=== PATIENT | female | born 1955 | race Caucasian/White ===

== ENCOUNTER → 2018-04-30 15:14 | Outpatient (CLI) | payer OTHER, SELFPAY ==
--- NOTE | 2018-04-30 | DI.US.S_ITS ---
PROCEDURE: US THYROID INDICATIONS: THYROID NODULE TECHNIQUE: Real-time scanning was performed of the thyroid gland, with image documentation. COMPARISON: None. FINDINGS: Right: The right thyroid lobe measures 3.6 x 0.9 x 0.9 cm. At the superior pole of the left thyroid, there is a 2 mm benign cyst incidentally noted. Left: The left thyroid lobe measures 3.7 x 1.1 x 1 cm. Isthmus: 3 mm in thickness. IMPRESSION: Thyroid ultrasound within normal limits. Dictated by: Mc Lange M.D. on 04/30/2018 at 16:34 Approved by: Mc Lange M.D. on 04/30/2018 at 16:35
== END ==
PROVIDERS: PCP Physician Assistant Medical; Visit Provider Physician Assistant Medical
DX: E04.1 Nontoxic single thyroid nodule (principal)
CPT/HCPCS: 76536

== ENCOUNTER → 2018-10-21 08:52 | Outpatient (CLI) | payer OTHER, SELFPAY ==
--- NOTE | 2018-10-21 | DI.RAD.S_ITS ---
PROCEDURE: FL WRIST INJECTION MR/CT RT INDICATIONS: RIGHT WRIST PAIN TECHNIQUE: After informed consent had been obtained, the wrist was examined fluoroscopically, and a site chosen for injection of the radiocarpal compartment from a dorsal approach. Skin was prepped and draped in a sterile fashion and 1% lidocaine infiltrated from the skin down to the articular surface. A hypodermic needle was then introduced into the articular space and a modest amount of contrast medium was instilled confirming intra-articular needle tip placement. This was followed by approximately 4 mL of a dilute gadolinium solution. Needle was removed and dressing was applied. The patient experienced no complications throughout the procedure and left the fluoroscopic suite in no apparent distress. FINDINGS: A single fluoroscopic spot image demonstrates intra-articular location to injected iodinated contrast. IMPRESSION: Successful fluoroscopic-guided administration of dilute Gadolinium solution for wrist MR arthrogram. Dictated by: Zeny Crouch M.D. on 10/21/2018 at 11:15 Approved by: Zeny Crouch M.D. on 10/21/2018 at 11:15
--- NOTE | 2018-10-21 | DI.MRI.S_ITS ---
PROCEDURE: MR WRIST RT W CON INDICATIONS: RIGHT WRIST PAIN TECHNIQUE: After the administration of 3-4 mL of dilute intra-articular Gadolinium contrast into the radiocarpal compartment, coronal T1 spin echo with fat saturation and T2 fast spin echo with fat saturation, axial T1 spin echo and T2 fast spin echo with fat saturation, sagittal T1 spin echo with and without fat saturation through the wrist. COMPARISON: None. FINDINGS: Image quality: Excellent. Bones and cartilage: The carpal bones are normally aligned. No bone marrow contusions or fractures. There are a few small nonspecific cystic foci within the carpal bones. There is mild indistinct T2 hyperintensity and heterogeneous T1 hypointensity within the lunate. There is mild cartilage thinning along the radiocarpal joint. There is also mild degeneration of the distal radioulnar joint. Carpal ligaments: The scapholunate and lunotriquetral ligaments appear intact, without gadolinium extravasation into the mid-carpal compartment. The radioscaphocapitate and radiolunotriquetral ligaments appear intact. The dorsal intercarpal and radiotriquetral ligaments appear intact. On sagittal images, the pisohamate ligament appears intact. Triangular fibrocartilage complex: The styloid and foveal attachments of the triangular fibrocartilage appear attenuated consistent with mild partial tearing. No gadolinium extravasation into the distal radioulnar joint. The adjacent meniscal homolog appears intermediate in signal intensity which may represent degeneration or sequelae of an ulnar collateral ligament sprain. The extensor carpi ulnaris tendon is normal in location with minimal linear intrasubstance partial tearing. Tendons and soft tissues: The carpal tunnel structures appear normal, including the median nerve. The ulnar nerve appears normal within Guyon's canal. All six extensor tendon compartments demonstrate normal morphology, without pathologic tendon sheath fluid. No soft tissue ganglion cysts. IMPRESSION: 1. Mild partial tearing at the ulnar attachments of the triangular fibrocartilage. 2. Mild edema along the ulnar collateral ligament of the wrist with intermediate signal in the meniscal homologue suggesting sequela of a mild sprain. There is associated minimal short segment interstitial partial tearing of the extensor carpi ulnaris tendon. 3. Mild indistinct T2 hyperintensity in the lunate with heterogeneous T1 hypointensity may reflect sequelae of a bone contusion. Developing avascular necrosis is less likely. Dictated by: Kashmir Caldwell M.D. on 10/21/2018 at 14:32 Approved by: Kashmir Caldwell M.D. on 10/21/2018 at 14:46
== END ==
PROVIDERS: PCP Nurse Practitioner; Visit Provider Orthopaedic Surgery
DX: M25.531 Pain in right wrist (principal); S63.591A Other specified sprain of right wrist, initial encounter; M25.431 Effusion, right wrist
CPT/HCPCS: 20605; 73222; 77002

== ENCOUNTER → 2019-06-21 09:38 | Outpatient (CLI) | payer OTHER, SELFPAY ==
--- NOTE | 2019-06-21 | DI.MRI.S_ITS ---
PROCEDURE: MR ELBOW RT WO CON INDICATIONS: lateral epicondylitis, right elbow TECHNIQUE: Noncontrast coronal proton density fast spin echo and T2 fast spin echo with fat saturation, axial and sagittal T1 spin echo and T2 fast spin echo with fat saturation through the elbow. COMPARISON: None. FINDINGS: Image quality: Excellent. Lateral structures: The lateral ulnar collateral ligament and radial collateral ligament both appear intact. Thickened overlying proximal common extensor tendon is seen with surrounding edema and intrasubstance heterogeneous signal suggestive of tendinosis or low-grade partial-thickness tear. Medial structures: The ulnar collateral ligament appears intact. The overlying common flexor tendon appears normal. The ulnar nerve appears normal in size and signal within the cubital tunnel. Anterior structures: The biceps and brachialis tendons both appear intact as they insert onto the proximal radius and ulna, respectively. No bicipitoradial bursal fluid. The median and radial neurovascular bundles appear normal; no focal muscle atrophy to suggest nerve impingement. Posterior structures: The conjoint triceps tendon from the long and lateral heads appears intact. The medial head of the triceps tendon also appears normal, with direct muscle insertion onto the olecranon. No olecranon bursal fluid. Bone and cartilage: No bone marrow contusions or fractures. No osteochondral injuries. IMPRESSION: 1. Tendinosis and low-grade partial-thickness tear involving common extensor tendon origin at its lateral humeral condyle insertion consistent with lateral epicondylitis. Underlying lateral collateral ligaments are intact. 2. No marrow edema. No fracture or dislocation. 3. Mild soft tissue swelling and edema over the proximal olecranon with no fluid distention of olecranon bursa. Dictated by: Mark Graham M.D. on 06/21/2019 at 14:56 Approved by: Mark Graham M.D. on 06/21/2019 at 15:08
== END ==
PROVIDERS: PCP Nurse Practitioner; Visit Provider Preventive Medicine Occupational Medicine
DX: M77.11 Lateral epicondylitis, right elbow (principal); M79.89 Other specified soft tissue disorders
CPT/HCPCS: 73221

== ENCOUNTER → 2019-09-20 16:03 | Outpatient (CLI) | payer OTHER, SELFPAY ==
--- NOTE | 2019-09-20 | DI.US.S_ITS ---
PROCEDURE: US RENAL COMPLETE INDICATIONS: HX OF UTI'S TECHNIQUE: Real-time scanning was performed of the kidneys and bladder, with image documentation. COMPARISON: None. FINDINGS: Kidneys: Kidneys are normal in size. Right kidney measures 12.0 cm long; left kidney measures 11.0 cm long. Right renal cortical thickness is 1.2 cm; left renal cortical thickness is 1.6 cm. Renal cortical echotexture is normal. No hydronephrosis or nephrolithiasis. No suspicious left-sided solid mass lesions. There is a heterogeneously hypoechoic focus within the midportion of the right kidney deep to the cortex measuring approximately 2.5 x 1.8 x 3.2 cm. No associated vascularity. Bladder: Pre-void bladder volume is 242 mL. Post-void residual is 40 mL. Pre-void images demonstrate no intraluminal masses or stones. On pre-void images, the bilateral ureteral jets are noted with color Doppler interrogation. (Of note, ureteral jets may not be detectable in up to 25% of cases due to insufficient differences in specific gravity between ureteral and bladder urine). Miscellaneous: No free pelvic fluid. IMPRESSION: 1. Bilateral kidneys without acute sonographic abnormalities or evidence for obstructive uropathy. 2. A 2.5 cm x 1.8 cm x 3.2 cm heterogeneously hypoechoic focus just deep to the cortex of the mid right kidney which may represent eccentric cortical tissue versus complex fluid collection versus mass. Recommend further evaluation with multiphase CT or MRI of the abdomen (renal mass protocol) to confirm and further characterize if persistent. Dictated by: Torrey Strong M.D. on 09/20/2019 at 18:00 Approved by: Torrey Strong M.D. on 09/20/2019 at 18:07
== END ==
PROVIDERS: PCP Nurse Practitioner; Referring Provider Urology; Visit Provider Urology
DX: Z09 Encounter for follow-up examination after completed treatment for conditions other than malignant neoplasm (principal); Z87.440 Personal history of urinary (tract) infections
CPT/HCPCS: 76770

== ENCOUNTER 2019-12-31 07:14 | Emergency (ER) | payer OTHER, SELFPAY ==
--- NOTE | 2019-12-31 07:28 | DI.RAD.S_ITS ---
PROCEDURE: XR HAND LT MIN 3V INDICATIONS: trip and fall TECHNIQUE: 3 views of the hand(s) acquired. COMPARISON: None. FINDINGS: Bones: On one image, there is an apparent mildly displaced radial styloid fracture seen. No other focal bony abnormality is seen. Age-appropriate bony degenerative changes are seen. Soft tissues: No suspicious soft tissue calcifications. IMPRESSION: Apparent radial styloid fracture seen on one view. Please correlate with focal tenderness. If it would be helpful for clinical management decision making, please consider a dedicated wrist CT for further evaluation. Dictated by: Mc Lange M.D. on 12/31/2019 at 7:16 Approved by: Mc Lange M.D. on 12/31/2019 at 7:18
[2019-12-31 07:29] VITALS: BP 149/79; PULSE 81; RESP 16; TEMP 37.2; O2SAT 99; BMI 33.7
--- NOTE | 2019-12-31 08:01 | ED_ITS ---
HPI - Extremity Injury (Upper) General Chief Complaint: Extremity Injury, Upper Stated Complaint: fell at home cant move left hand Time Seen by Provider: 12/31/19 07:47 Source: patient Mode of arrival: Family Vehicle Limitations: no limitations History of Present Illness HPI narrative: CC: Left hand injury. HPI: The patient is a 64-year-old female who states that she was arm outside going up concrete stairs when she slipped and fell and jammed a stair between her left middle and ring finger. She developed severe pain and discomfort and pain in the area of the metacarpophalangeal joints. The patient admits to being right-hand dominant. She stuck her hand out to break her fall. Her pain and discomfort is 7/10 in intensity. It is a dull achy discomfort. She denies any loss of sensation. She did not strike her head back or neck. She denies any chest pain shortness of breath hip pain pelvic pain or difficulty in walking. She did not lose consciousness. She denies a history of diabetes mellitus hypertension stroke myocardial infarction COPD asthma. She admits to being a former smoker periodically drinks alcohol does not use any drugs or marijuana. Related Data Home Medications Medication Instructions Recorded Confirmed aspirin 81 mg tablet,delayed 81 mg PO DAILY 01/15/18 01/15/18 release bupropion HCl 200 mg tablet,12 hr 200 mg PO DAILY 01/15/18 01/15/18 sustained-release ibuprofen 600 mg tablet 600 mg PO QID PRN 01/15/18 01/15/18 levothyroxine 50 mcg capsule 50 mcg PO DAILY 01/15/18 01/15/18 Previous Rx's Medication Instructions Recorded naproxen [Naprosyn] 500 mg PO BID PRN #20 tab 12/31/19 Allergies Allergy/AdvReac Type Severity Reaction Status Date / Time narcotics AdvReac Vomiting Uncoded 12/31/19 07:33 opiates AdvReac Vomiting Uncoded 12/31/19 07:33 Review of Systems Review of Systems Narrative: REVIEW OF SYSTEMS: CONSTITUTIONAL: Denies any fever chills or sweats. NEUROLOGICAL: Denies any headache or head injury numbness or tingling loss of sensation difficulty in walking. EENT: Denies any loss of vision change in vision sore throat. CARDIO-PULMONARY: She has had no chest pain cough shortness of breath difficulty in breathing. GASTROINTESTINAL: She denies any abdominal pain nausea vomiting diarrhea incontinence of stool or urine. GENITAL URINARY: No urinary symptoms. MUSCULOSKELETAL/ RHEUMATOLOGICAL: She denies any back pain. Patient History Social History Smoking Status: Former smoker Smoking Status: Former smoker alcohol intake frequency: 0-2 drinks per day Substance Use Type: does not use Exam Narrative Exam Narrative: PHYSICAL EXAM: CONSTITUTIONAL: Awake, Alert, Oriented, Coherent, Cooperative in NAD. Pleasant and cooperative HEAD: AT/NC EENT: PERRL, FROM of eyes, no discharge, no nystagmus MOUTH:Oral mucosa is moist and pink, posterior pharynx is without erythema or exudate. NECK: Supple, no obvious JVD, Trachea is midline without stridor, no palpable LN. SPINE: Palpationof the cervical, Thoracic, Lumbar or Sacral spine reveals no gross deformity or tenderness. No CVA tenderness. THORAX: No , chest wall tenderness. LUNGS: Clear, symmetrical breath sounds without respiratory distress. HEART: Normal heart tones, regular rhythm and rate without murmur. ABDOMEN: Soft, non-tender, normal bowel sounds without guarding, rebound, rigidity or palpable mass. EXTREMITIES: The patient has no tenderness over the distal radius or ulna of the left hand. The patient is tender to palpation over the metacarpal phalangeal joint of the ring and middle fingers and the webbing and soft tissue in between these fingers. The distal metacarpal bones of the ring finger and middle finger are tender but no palpable deformity. There is no significant soft tissue swelling or bruising of this area. SKIN: No rash, bruising, petechiae, purpura or abrasions NEURO: Awake, alert, oriented, conversive, cranial nerves II-XII are symmetrical , moves all 4 extremities and is ambulatory. Initial Vital Signs Initial Vital Signs: Vital Signs Temperature 98.9 F 12/31/19 07:29 Pulse Rate 81 12/31/19 07:29 Respiratory Rate 16 12/31/19 07:29 Blood Pressure 149/79 H 12/31/19 07:29 Pulse Oximetry 99 12/31/19 07:29 Course Course Course Narrative: 0759: Review of the patient's x-ray by myself revealed no fracture. At this time there is no radiology report. The patient states that her pain and discomfort with movement is 7/10 in intensity. She states that for severe pain and discomfort she has tramadol at home which does not cause her to have nausea and vomiting. She states that she can take this for severe pain and discomfort. The patient will be placed in a volar splint, a sling and follow up with [facility], Dr. Nichole. Orders Ordered: Discontinued Medications Ketorolac Tromethamine (Toradol) 30 mg IM NOW ONE Stop: 12/31/19 08:04 Last Admin: 12/31/19 08:19 Dose: Not Given Documented by: JUAN Vital Signs Vital signs: Vital Signs - 8 hr 12/31/19 07:29 Temperature 98.9 F Pulse Rate 81 Respiratory Rate 16 Blood Pressure 149/79 H Pulse Oximetry 99 Discharge Plan Departure Patient Disposition: Home Clinical Impression: Contusion of hand, left Qualifiers: Encounter type: initial encounter Qualified Code(s): S60.222A - Contusion of left hand, initial encounter Hand sprain Qualifiers: Encounter type: initial encounter Laterality: left Qualified Code(s): S63.92XA - Sprain of unspecified part of left wrist and hand, initial encounter Discharge Date/Time: 12/31/19 09:33 Instructions: Sprain, Finger Sprain, DI for Wrist Sprain, DI for Contusion Activity Restrictions/Additional Instructions: 1. Thank you for letting us participate in your care. If the radiologist sees something on the x-ray that I did not see we will call you with the results. But my review of the x-rays of your left hand revealed no fracture. Your injury is consistent with a sprain and contusion of the finger. You may have arm injured and disrupted some of the ligaments between your ring finger and middle finger. 2. Keep your hand elevated and apply ice for swelling every 2 hours for 20-30 minutes. Use a sling as necessary to support the arm. Continue to wear your splint until you are seen in follow-up with your primary care physician or orthopedic surgeon. 3. Use Naprosyn 500 mg every 12 hours as needed for pain and discomfort. 4. For severe pain and discomfort use the tramadol that she already have at home. 5. If you develop worsening pain difficulty in the use of the hand increased swelling increased numbness or tingling or loss of function return to the emergency department as necessary. 6. Call Dr. Nichole's office at [facility] to make a follow-up exam. Prescriptions: New naproxen [Naprosyn] 500 mg tablet 500 mg PO BID PRN (Reason: pain) Qty: 20 RF: 0 No Action bupropion HCl 200 mg tablet extended release 12 hr 200 mg PO DAILY RF: 0 levothyroxine 50 mcg capsule 50 mcg PO DAILY RF: 0 aspirin 81 mg tablet,delayed release (DR/EC) 81 mg PO DAILY RF: 0 ibuprofen 600 mg tablet 600 mg PO QID PRNRF: 0 Referrals: Leslie Weiner ARNP [Primary Care Provider] - Curtis Nichole MD [Physician] - (hand injury with apparent fracture secondary to a fall.)
[2019-12-31 09:32] VITALS: BP 132/73; PULSE 77; RESP 16; O2SAT 98
== END 2019-12-31 09:33 | disposition home or self-care (01) ==
PROVIDERS: Emergency Provider Emergency Medicine; PCP Nurse Practitioner
DX: S60.222A Contusion of left hand, initial encounter (principal); S63.92XA Sprain of unspecified part of left wrist and hand, initial encounter; W10.9XXA Fall (on) (from) unspecified stairs and steps, initial encounter
CPT/HCPCS: 29125; 73130; 99283

== ENCOUNTER → 2020-03-21 11:03 | Outpatient (CLI) | payer OTHER, SELFPAY | PROVIDERS: PCP Nurse Practitioner; Visit Provider Registered Nurse Diabetes Educator | DX: N39.0 Urinary tract infection, site not specified (principal) | CPT/HCPCS: 87086 ==

== ENCOUNTER → 2020-05-07 16:32 | Outpatient (CLI) | payer OTHER, SELFPAY | PROVIDERS: PCP Registered Nurse Diabetes Educator; Visit Provider Family Medicine | DX: R30.0 Dysuria (principal) | CPT/HCPCS: 87086 ==

== ENCOUNTER → 2020-06-07 17:22 | Outpatient (CLI) | payer OTHER, SELFPAY ==
--- NOTE | 2020-06-07 17:23 | DI.MRI.S_ITS ---
PROCEDURE: MR SHOULDER RT WO CON INDICATIONS: PAIN IN RIGHT SHOULDER TECHNIQUE: Noncontrast oblique coronal T2 fast spin echo with fat saturation, oblique sagittal T1 spin echo and T2 fast spin echo with fat saturation, axial T1 spin echo and T2 fast spin echo with fat saturation through the shoulder. COMPARISON: [facility], CR, XR SHOULDER 2+ VIEWS RIGHT, 05/17/2020, 14:57. FINDINGS: Image quality: Excellent. Rotator cuff: There is full-thickness tear of the supraspinatus tendon. No supraspinatus tendon retraction. High-grade partial thickness tear is seen in the infraspinatus tendon. There is subscapularis tendinitis. Sagittal images demonstrate no rotator cuff muscle atrophy. Bones and bursae: No bone marrow contusions or fractures. There is moderate acromioclavicular and glenohumeral joint degeneration. The acromion demonstrates conventional anatomy, without an os acromiale. There is small subacromial-subdeltoid bursal fluid consistent with mild bursitis. Capsule and soft tissues: There is degenerative fraying of the glenoid labrum. In the absence of intra-articular contrast, the glenohumeral ligaments appear intact. The long head of the biceps tendon demonstrates normal location and morphology. The rotator interval appears normal, without fibrosis. The coracohumeral ligament is normal in thickness. IMPRESSION: 1. Full-thickness tear of the supraspinatus tendon. 2. High-grade partial thickness tear of the infraspinatus tendon. 3. Subscapularis tendinitis. 4. Degenerative fraying of the glenoid labrum. 5. Moderate acromioclavicular and glenohumeral joint degeneration. Dictated by: Zeny Crouch M.D. on 06/07/2020 at 20:12 Approved by: Zeny Crouch M.D. on 06/08/2020 at 9:35
== END ==
PROVIDERS: PCP Registered Nurse Diabetes Educator; Referring Provider Orthopaedic Surgery; Visit Provider Orthopaedic Surgery
DX: M25.511 Pain in right shoulder (principal); M75.121 Complete rotator cuff tear or rupture of right shoulder, not specified as traumatic; M19.011 Primary osteoarthritis, right shoulder; M77.8 Other enthesopathies, not elsewhere classified
CPT/HCPCS: 73221

== ENCOUNTER → 2020-08-13 10:28 | Outpatient (CLI) | payer OTHER, SELFPAY ==
[2020-08-13 11:55] LABS: COVID19 -Nasal RAPID Negative (Negative)
== END ==
PROVIDERS: PCP Registered Nurse Diabetes Educator; Visit Provider Physician Assistant
DX: Z20.822 Contact with and (suspected) exposure to COVID-19 (principal)
CPT/HCPCS: 87635

== ENCOUNTER → 2020-10-19 07:24 | Outpatient (CLI) | payer OTHER, SELFPAY ==
[2020-10-19 08:20] LABS: Hematocrit 39.1 % (36-46); Hemoglobin 12.8 g/dL (12.0-16.0); Mean Corpuscular HGB Conc 32.7 % (30-36); Mean Corpuscular Hemoglobin 29.7 PG (26-34); Mean Corpuscular Volume 90.8 fL (80-100); Platelet Count 264 X10^3/uL (150-400); Red Cell Distribution Width 13.7 % (11.6-14.8); White Blood Cell Count 5.9 X10^3/uL (4.5-11.0)
[2020-10-19 08:45] LABS: Alanine Aminotransferase 15 IU/L (<35); Albumin 4.3 g/dL (3.5-5.0); Albumin Globulin Ratio 1.5 (1.0-2.8); Alkaline Phosphatase 55 U/L (38-126); Aspartate Aminotransferase 18 IU/L (14-36); BUN Creatinine Ratio 18.3 (6-22); Bilirubin Total 0.3 mg/dL (0.2-1.3); Blood Urea Nitrogen 17 mg/dL (7-17); Carbon Dioxide 30 mmol/L (22-32); Chloride 104 mmol/L (98-107); Cholesterol 264 mg/dL (140-199); Estimated Glomerular Filt Rate > 60.0 mL/min (>60); Globulin 2.8 g/dL (1.7-4.1); Glucose 102 mg/dL (80-110); HEMOLYSIS < 15 (0-50); Total Protein 7.1 g/dL (6.3-8.2); Triglycerides 261 mg/dL (35-150)
[2020-10-19 08:53] LABS: Calcium 9.7 mg/dL (8.4-10.2); HDL Cholesterol 50 mg/dL (40-60); LDL Cholesterol Calculated 162 mg/dL (<100); Potassium 4.2 mmol/L (3.4-5.1); Sodium 138 mmol/L (137-145)
[2020-10-19 09:02] LABS: Free T4, Direct Thyroxine 1.13 ng/dL (0.78-2.19)
[2020-10-19 09:15] LABS: Thyroid Stimulating Hormone 2.48 uIU/mL (0.47-4.68)
== END ==
PROVIDERS: PCP Nurse Practitioner Family; Referring Provider Nurse Practitioner Family; Visit Provider Nurse Practitioner Family
DX: Z00.00 Encounter for general adult medical examination without abnormal findings (principal); E03.9 Hypothyroidism, unspecified; Z13.6 Encounter for screening for cardiovascular disorders; Z86.19 Personal history of other infectious and parasitic diseases
CPT/HCPCS: 36415; 80053; 80061; 84439; 84443; 85027; 87522

== ENCOUNTER 2020-12-26 15:43 | Emergency (ER) | payer OTHER, SELFPAY ==
[2020-12-26 15:47] VITALS: BP 161/90; PULSE 86; RESP 18; TEMP 36.6; O2SAT 98; BMI 30.7
--- NOTE | 2020-12-26 17:20 | ED_ITS ---
HPI - General Adult General Chief complaint: Extremity Injury, Upper Stated complaint: wound to ring finger right hand Time Seen by Provider: 12/26/20 17:14 Source: patient Mode of arrival: Ambulatory Limitations: no limitations History of Present Illness HPI narrative: Patient is a 65-year-old female here for evaluation of a laceration to the tip of her right ring finger. She states that this morning she was cleaning a mandoline that she had used for chopping vegetables and cut the tip of her finger. She states that she put a bandage over the area and went to work but as the day went on it still was oozing and so she came in hoping that she could have it glued closed. Related Data Home Medications Medication Instructions Recorded Confirmed aspirin 81 mg tablet,delayed 81 mg PO DAILY 01/15/18 11/14/20 release bupropion HCl 200 mg tablet,12 hr 200 mg PO DAILY 01/15/18 11/14/20 sustained-release ibuprofen 600 mg tablet 600 mg PO QID PRN 01/15/18 11/14/20 diazepam 5 mg tablet 5 mg PO BEDTIME PRN 10/16/20 11/14/20 Previous Rx's Medication Instructions Recorded estradiol 10 mcg vaginal tablet 10 mcg VAG 2XW #26 tab 02/24/20 levothyroxine 50 mcg capsule 100 mcg PO DAILY #180 cap 10/16/20 Allergies Allergy/AdvReac Type Severity Reaction Status Date / Time Opioids - Morphine Analogues AdvReac Verified 12/26/20 15:47 Review of Systems Musculoskeletal Musculoskeletal: Reports system reviewed and no additional complaints, except as documented Integumentary/Breasts Comments: Cut to the tip of the right ring finger Hematologic/Lymphatic On Anticoagulants: No Allergic/Immunologic Allergic/Immunologic: Reports system reviewed and no additional complaints, except as documented Patient History Medical History Ankle pain Encounter for routine gynecological examination (11/14/20) Encounter for wellness examination in adult (11/14/20) Fibroids Foot pain (~2017) Fractures Frequent UTI History of hepatitis C (~1973) Hypothyroidism (~2013) Kidney stones (~1979) Mixed hyperlipidemia (11/2020) Pernicious anemia (~2014) Post-menopausal Right shoulder pain Seizures Shingles (1979) Vertigo (~2015) Surgical History Anesthesia Bunion (~1972) History of appendectomy (~1960) History of section History of elbow surgery (~01/16/20) History of left knee surgery (~11/2016) History of surgery on right wrist (~04/04/19) History of tonsillectomy (~1971) History of total right hip arthroplasty (~09/2015) Status post arthroscopic surgery of right knee (~2008) Trigger finger of right thumb (~2012) Family History Father COPD (chronic obstructive pulmonary disease) History of heart disease Cancer Mother Breast cancer Mental health problem Brother Skin cancer Sister Diabetes mellitus Obesity Grandfather Stroke Arthritis Grandmother No problems noted. Grandfather History of heart disease Arthritis Grandmother Mental health problem Social History Smoking Status: Former smoker Tobacco: How many years used: 25 second hand exposure: No alcohol intake: current (1-2x/week) substance use type: does not use Smoking Status: Former smoker alcohol intake frequency: a few times a week Substance Use Type: does not use Exam Initial Vital Signs Initial Vital Signs: Vital Signs Temperature 97.9 F 12/26/20 15:47 Pulse Rate 86 12/26/20 15:47 Respiratory Rate 18 12/26/20 15:47 Blood Pressure 161/90 H 12/26/20 15:47 Pulse Oximetry 98 12/26/20 15:47 Const General: cooperative and comfortable Limitations: mental status not altered Cardio Pulses: radial pulses present on the right Skin Other: 1 cm cut to the volar aspect of the right ring finger distal. Does not i nvolve the nail. Neuro General: patient alert and patient awake Sensory Exam: no sensory deficits noted Extrem General: capillary refill normal Procedures Laceration Repair Laceration 1: Site: other (Ring finger) Side (If applicable): right Size (cm): 1 Description: linear Depth: simple, single layer Pre-repair: irrigated extensively and deep structures intact Skin layer closed with: dermabond Course Vital Signs Vital signs: Vital Signs - 8 hr 12/26/20 15:47 12/26/20 17:55 Temperature 97.9 F Pulse Rate 86 80 Respiratory Rate 18 Blood Pressure 161/90 H 135/80 Pulse Oximetry 98 Medical Decision Making MDM Narrative Medical decision making narrative: Neurovascularly intact, no signs of foreign body. Had a discussion with the patient regarding the closure options and she opted for Steri-Strips and Dermabond. We did get good closure with this. She was given return precautions and follow-up instructions. She expressed understanding and agreement. Discharge Plan Departure Patient Disposition: Home Clinical Impression: Laceration of finger of right hand Instructions: DI for Laceration Repair Activity Restrictions/Additional Instructions: Recommend that you try to keep the Steri-Strips on for least the next 48 hours and longer if possible. You can wash your hands like normal but do not soak your hand anything. Return to the emergency department for any new or worsening symptoms Prescriptions: No Action estradiol [Vagifem] 10 mcg tablet 10 mcg VAG 2XW Qty: 26 RF: 3 diazepam 5 mg tablet 5 mg PO BEDTIME PRNRF: 0 levothyroxine 50 mcg capsule 100 mcg PO DAILY Qty: 180 RF: 3 bupropion HCl 200 mg tablet extended release 12 hr 200 mg PO DAILY RF: 0 aspirin 81 mg tablet,delayed release (DR/EC) 81 mg PO DAILY RF: 0 ibuprofen 600 mg tablet 600 mg PO QID PRNRF: 0 Referrals: Daniel Henriquez ARNP [Primary Care Provider] -
[2020-12-26 17:55] VITALS: BP 135/80; PULSE 80
== END 2020-12-26 17:50 | disposition home or self-care (01) ==
PROVIDERS: Emergency Provider Emergency Medicine; PCP Nurse Practitioner Family
DX: S61.214A Laceration without foreign body of right ring finger without damage to nail, initial encounter (principal); W26.8XXA Contact with other sharp object(s), not elsewhere classified, initial encounter
CPT/HCPCS: 12001; 99282

== ENCOUNTER → 2020-12-28 14:48 | Outpatient (CLI) | payer OTHER, SELFPAY ==
--- NOTE | 2020-12-28 14:49 | DI.MG.S_ITS ---
BILATERAL DIGITAL SCREENING MAMMOGRAM 3D/2D WITH CAD: 12/28/2020 CLINICAL: Routine screening. Family history of breast cancer. Comparison is made to exams dated: 05/30/2016 mammogram, 06/10/2017 mammogram, and 06/30/2018 mammogram - [facility]. The tissue of both breasts is predominantly fatty. Current study was also evaluated with a Computer Aided Detection (CAD) system. There are benign calcifications in both breasts. No significant masses, calcifications, or other findings are seen in either breast. There has been no significant interval change. IMPRESSION: BENIGN There is no mammographic evidence of malignancy. A 1 year screening mammogram is recommended. This exam was interpreted at Station ID: [id number]. NOTE: For mammograms, a report in lay terms will be sent to the patient. Approximately 15% of breast malignancies will not be visualized mammographically. In the management of a palpable breast mass, a negative mammogram must not discourage biopsy of a clinically suspicious lesion. Electronically Signed By: Manuel Anthony acr/jennifer:12/28/2020 17:22:04 letter sent: Normal Exam ACR BI-RADS Category 2: Benign Finding(s) 3342F
--- NOTE | 2020-12-28 14:49 | DI.RAD.S_ITS ---
PROCEDURE: XR DEXA AXIAL SKELETON INDICATIONS: screen COMPARISON: None. FINDINGS: This blank DEXA report has been sent in error by the PACS system. The correct and complete report will be forthcoming in 1-2 days. Thank you for your patience and understanding. Dictated by: Emelia Arriaga MD, PhD on 12/28/2020 at 17:11 Approved by: Emelia Arriaga MD, PhD on 12/28/2020 at 17:11
== END ==
PROVIDERS: PCP Nurse Practitioner Family; Referring Provider Nurse Practitioner Family; Visit Provider Nurse Practitioner Family
DX: Z12.31 Encounter for screening mammogram for malignant neoplasm of breast (principal); Z80.3 Family history of malignant neoplasm of breast; Z78.0 Asymptomatic menopausal state; Z87.891 Personal history of nicotine dependence; Z82.62 Family history of osteoporosis
CPT/HCPCS: 77063; 77067; 77080

== ENCOUNTER 2021-02-05 18:03 | Emergency (ER) | payer OTHER, SELFPAY ==
[2021-02-05 18:22] VITALS: BP 150/78; PULSE 111; RESP 24; TEMP 37.8; O2SAT 94; BMI 29.8
--- NOTE | 2021-02-05 18:29 | DI.RAD.S_ITS ---
PROCEDURE: XR CHEST 1V INDICATIONS: suspected sepsis TECHNIQUE: One view of the chest was acquired. COMPARISON: None. FINDINGS: Surgical changes and devices: None. Lungs and pleura: Lungs are clear. No pleural effusions or pneumothorax. Mediastinum: Mediastinal contours appear normal. Heart size is normal. Bones and chest wall: No suspicious bony lesions. Overlying soft tissues appear unremarkable. IMPRESSION: Left lower lobe infiltrates suspicious for pneumonia. Dictated by: Zeny Crouch M.D. on 02/05/2021 at 18:48 Approved by: Zeny Crouch M.D. on 02/05/2021 at 18:49
[2021-02-05 18:45] VITALS: PULSE 104; RESP 28; O2SAT 97
[2021-02-05 18:59] LABS: Bacteria Urine None Seen
[2021-02-05 19:00] VITALS: BP 152/96; PULSE 100; RESP 23; O2SAT 95
[2021-02-05 19:06] LABS: Add Manual Diff / Slide Review NO; Basophils Absolute Auto 100 /uL (0-100); Eosinophils Absolute Auto 0 /uL (0-450); Eosinophils Percent Auto 0.3 % (2-4); Hematocrit 36.4 % (36-46); Hemoglobin 12.5 g/dL (12.0-16.0); Lymphocytes Absolute Auto 1900 /uL (1100-4500); Lymphocytes Percent Auto 21.8 % (25-40); Mean Corpuscular HGB Conc 34.3 % (30-36); Mean Corpuscular Hemoglobin 30.6 PG (26-34); Mean Corpuscular Volume 89.3 fL (80-100); Monocytes Absolute Auto 800 /uL (0-900); Monocytes Percent Auto 8.7 % (3-14); Neutrophils Absolute Auto 6100 /uL (1500-7000); Neutrophils Percent Auto 68.2 % (50-75); Platelet Count 276 X10^3/uL (150-400); Red Blood Cell Count 4.08 X10^6/uL (4.0-5.2); Red Cell Distribution Width 13.5 % (11.6-14.8); White Blood Cell Count 8.9 X10^3/uL (4.5-11.0)
[2021-02-05 19:12] LABS: RBC Urine 0-1/HPF (0-5/HPF); Squamous Epithelial Cell Urine 0-1 /HPF (0-5/HPF); WBC Urine 0-1/HPF (0-5/HPF)
[2021-02-05 19:13] LABS: Culture Indicated Urine Cult Not Indicated
[2021-02-05 19:16] LABS: Alanine Aminotransferase 20 IU/L (<35); Albumin 4.4 g/dL (3.5-5.0); Albumin Globulin Ratio 1.3 (1.0-2.8); Alkaline Phosphatase 58 U/L (38-126); Aspartate Aminotransferase 22 IU/L (14-36); BUN Creatinine Ratio 12.9 (6-22); Bilirubin Total 0.4 mg/dL (0.2-1.3); Blood Urea Nitrogen 11 mg/dL (7-17); Calcium 9.5 mg/dL (8.4-10.2); Carbon Dioxide 27 mmol/L (22-32); Chloride 100 mmol/L (98-107); Estimated Glomerular Filt Rate > 60.0 mL/min (>60); Globulin 3.4 g/dL (1.7-4.1); Glucose 115 mg/dL (80-110); HEMOLYSIS < 15 (0-50); Lipase 106 U/L (23-300); Potassium 4.1 mmol/L (3.4-5.1); Sodium 136 mmol/L (137-145); Total Protein 7.8 g/dL (6.3-8.2)
[2021-02-05] MEDS: SODIUM CHLORIDE 0.9% 1,000 ML 1000 ML IV (19:22)
[2021-02-05 19:27] LABS: COVID19 -Nasal RAPID Negative (Negative)
[2021-02-05 19:30] VITALS: BP 159/98; PULSE 98; RESP 29; O2SAT 97
[2021-02-05 19:32] LABS: Procalcitonin 0.08 ng/mL (<0.5)
--- NOTE | 2021-02-05 19:36 | ED_ITS ---
HPI - General Adult General Chief complaint: Shortness of Breath/Dyspnea Stated complaint: SOB, fever Time Seen by Provider: 02/05/21 18:56 Source: patient Mode of arrival: Ambulatory Limitations: no limitations History of Present Illness HPI narrative: Patient is a 65-year-old female here for evaluation of approxim ately 24 hours of a cough, feeling off balance, having problems taking a deep breath. Has not any fevers. No chest pain. States that overall she just does not feel very well. Related Data Home Medications Medication Instructions Recorded Confirmed aspirin 81 mg tablet,delayed 81 mg PO DAILY 01/15/18 11/14/20 release bupropion HCl 200 mg tablet,12 hr 200 mg PO DAILY 01/15/18 11/14/20 sustained-release ibuprofen 600 mg tablet 600 mg PO QID PRN 01/15/18 11/14/20 diazepam 5 mg tablet 5 mg PO BEDTIME PRN 10/16/20 11/14/20 Previous Rx's Medication Instructions Recorded estradiol 10 mcg vaginal tablet 10 mcg VAG 2XW #26 tab 02/24/20 (Vagifem) levothyroxine 50 mcg capsule 100 mcg PO DAILY #180 cap 10/16/20 azithromycin 250 mg tablet 250 mg PO DAILY 4 Days #4 tab 02/05/21 Allergies Allergy/AdvReac Type Severity Reaction Status Date / Time Opioids - Morphine Analogues AdvReac Verified 02/05/21 18:22 Review of Systems Constitutional Constitutional: Denies fever(s) Cardiovascular Cardiovascular: Denies chest pain and Reports dyspnea Respiratory Respiratory: Reports cough and Reports dyspnea Gastrointestinal Gastrointestinal: Reports nausea and Denies vomiting Musculoskeletal Musculoskeletal: Reports system reviewed and no additional complaints, except as documented Integumentary/Breasts Skin/Breast: Reports system reviewed and no additional complaints, except as documented Neurologic Comments: Feels off balance Hematologic/Lymphatic On Anticoagulants: No Allergic/Immunologic Allergic/Immunologic: Reports system reviewed and no additional complaints, except as documented Patient History Medical History Ankle pain Encounter for routine gynecological examination (11/14/20) Encounter for wellness examination in adult (11/14/20) Fibroids Foot pain (~2017) Fractures Frequent UTI History of hepatitis C (~1973) Hypothyroidism (~2013) Kidney stones (~1979) Mixed hyperlipidemia (11/2020) Pernicious anemia (~2014) Post-menopausal Right shoulder pain Seizures Shingles (1979) Vertigo (~2015) Surgical History Anesthesia Bunion (~1972) History of appendectomy (~1960) History of section History of elbow surgery (~01/16/20) History of left knee surgery (~11/2016) History of surgery on right wrist (~04/04/19) History of tonsillectomy (~1971) History of total right hip arthroplasty (~09/2015) Status post arthroscopic surgery of right knee (~2008) Trigger finger of right thumb (~2012) Family History Father COPD (chronic obstructive pulmonary disease) History of heart disease Cancer Mother Breast cancer Mental health problem Brother Skin cancer Sister Diabetes mellitus Obesity Grandfather Stroke Arthritis Grandmother No problems noted. Grandfather History of heart disease Arthritis Grandmother Mental health problem Social History Smoking Status: Former smoker Tobacco: How many years used: 25 second hand exposure: No alcohol intake: current (1-2x/week) substance use type: does not use Smoking Status: Former smoker alcohol intake frequency: a few times a week Substance Use Type: does not use Exam Initial Vital Signs Initial Vital Signs: Vital Signs Temperature 100.1 F H 02/05/21 18:22 Pulse Rate 111 H 02/05/21 18:22 Respiratory Rate 24 02/05/21 18:22 Blood Pressure 150/78 H 02/05/21 18:22 Pulse Oximetry 94 02/05/21 18:22 Const General: cooperative, healthy appearing and comfortable [facility] Head: normal to inspection and normocephalic Resp Effort & Inspection: not labored and tachypneic Auscultation: clear to auscultation bilaterally Cardio Rate: tachycardic Rhythm: regular rhythm GI Inspection: normal to inspection Skin General: no rashes or lesions noted Neuro General: patient alert and patient awake Extrem General: normal to inspection Psych Appearance: grossly normal Scores CURB-65 Confusion: No BUN >19mg/dL (>7mmol/L): No Respiratory rate greater or equal to 30: No SBP <90mmHg or DBP less or equal to 60mmHg: No Age 65 or Older: Yes CURB-65 Total: 1 Score 0-1 Outpatient care, Score 2 Inpt vs. Obs, Score 3 or over Inpt admit with ICU for score of 4-5 Course Orders Ordered: ED Orders 02/05/21 18:29 XR chest 1V Stat RT Consult Eval and Treat Now 02/05/21 18:40 Urine Microscopic Stat 02/05/21 18:45 COVID19 -Nasal swab/Pre-Proc Stat 02/05/21 18:47 Blood Culture Stat Complete Blood Count AUTO DIFF Stat Comprehensive Metabolic Panel Stat Lactate (Lactic Acid) Stat Lipase Stat Procalcitonin Stat 02/05/21 19:06 EKG-12 Lead Stat Discontinued Medications Sodium Chloride (Normal Saline 0.9%) 1,000 mls @ 1,000 mls/hr IV BOLUS ONE Stop: 02/05/21 19:28 Last Infusion: 02/05/21 21:14 Dose: 1,000 mls/hr Documented by: Admin: 02/05/21 19:22 Dose: 1,000 mls/hr Documented by: JOYCE Azithromycin 500 mg/ Dextrose 250 mls @ 250 mls/hr IV NOW ONE Stop: 02/05/21 18:57 Last Infusion: 02/05/21 21:14 Dose: 250 mls/hr Documented by: Admin: 02/05/21 19:58 Dose: 250 mls/hr Documented by: DENISE Vital Signs Vital signs: Vital Signs - 8 hr 02/05/21 18:22 02/05/21 18:45 02/05/21 19:00 Temperature 100.1 F H Pulse Rate 111 H 104 H 100 H Respiratory Rate 24 28 H 23 Blood Pressure 150/78 H 152/96 H Pulse Oximetry 94 97 95 02/05/21 19:30 02/05/21 20:00 02/05/21 20:47 Temperature 99.0 F Pulse Rate 98 H 91 H 93 H Respiratory Rate 29 H 34 H 27 H Blood Pressure 159/98 H 166/93 H 154/95 H Pulse Oximetry 97 97 95 Medical Decision Making Lab Data Lab results reviewed: Yes I reviewed the patient's lab results. Result diagrams: 02/05/21 18:47 02/05/21 18:47 Labs: Lab Results 02/05/21 02/05/21 02/05/21 Range/Units 18:40 18:45 18:47 WBC 8.9 (4.5-11.0) X10^3/uL RBC 4.08 (4.0-5.2) X10^6/uL Hgb 12.5 (12.0-16.0) g/dL Hct 36.4 (36-46) % MCV 89.3 (80-100) fL MCH 30.6 (26-34) PG MCHC 34.3 (30-36) % RDW 13.5 (11.6-14.8) % Plt Count 276 (150-400) X10^3/uL Neut % (Auto) 68.2 (50-75) % Lymph % (Auto) 21.8 L (25-40) % [place] % (Auto) 8.7 (3-14) % Eos % (Auto) 0.3 L (2-4) % Baso % (Auto) 1.0 (0-2) % Neut # (Auto) 6100 (0934-3933) /uL Lymph # (Auto) 1900 (1999-4008) /uL [place] # (Auto) 800 (0-900) /uL Eos # (Auto) 0 (0-450) /uL Baso # (Auto) 100 (0-100) /uL Sodium (137-145) mmol/L Potassium (3.4-5.1) mmol/L Chloride (98-107) mmol/L Carbon Dioxide (22-32) mmol/L BUN (7-17) mg/dL Creatinine (0.52-1.04) mg/dL Estimated GFR (>60) mL/min BUN/Creatinine Ratio (6-22) Glucose (80-110) mg/dL Lactate (0.7-2.1) mmol/L Calcium (8.4-10.2) mg/dL Total Bilirubin (0.2-1.3) mg/dL AST (14-36) IU/L ALT (<35) IU/L Alkaline Phosphatase (38-126) U/L Total Protein (6.3-8.2) g/dL Albumin (3.5-5.0) g/dL Globulin (1.7-4.1) g/dL Albumin/Globulin Ratio (1.0-2.8) Lipase (23-300) U/L Procalcitonin (<0.5) ng/mL Urine RBC 0-1/hpf (0-5/HPF) Urine WBC 0-1/hpf (0-5/HPF) Ur Squamous Epith Cells 0-1 /hpf (0-5/HPF) Urine Bacteria None seen (None) Ur Culture Indicated? Cult not indicated SARS-CoV-2 (PCR) Negative (Negative) 02/05/21 02/05/21 Range/Units 18:47 18:47 WBC (4.5-11.0) X10^3/uL RBC (4.0-5.2) X10^6/uL Hgb (12.0-16.0) g/dL Hct (36-46) % MCV (80-100) fL MCH (26-34) PG MCHC (30-36) % RDW (11.6-14.8) % Plt Count (150-400) X10^3/uL Neut % (Auto) (50-75) % Lymph % (Auto) (25-40) % [place] % (Auto) (3-14) % Eos % (Auto) (2-4) % Baso % (Auto) (0-2) % Neut # (Auto) (3969-1001) /uL Lymph # (Auto) (8473-3700) /uL [place] # (Auto) (0-900) /uL Eos # (Auto) (0-450) /uL Baso # (Auto) (0-100) /uL Sodium 136 L (137-145) mmol/L Potassium 4.1 (3.4-5.1) mmol/L Chloride 100 (98-107) mmol/L Carbon Dioxide 27 (22-32) mmol/L BUN 11 (7-17) mg/dL Creatinine 0.85 (0.52-1.04) mg/dL Estimated GFR > 60.0 (>60) mL/min BUN/Creatinine Ratio 12.9 (6-22) Glucose 115 H (80-110) mg/dL Lactate 1.0 (0.7-2.1) mmol/L Calcium 9.5 (8.4-10.2) mg/dL Total Bilirubin 0.4 (0.2-1.3) mg/dL AST 22 (14-36) IU/L ALT 20 (<35) IU/L Alkaline Phosphatase 58 (38-126) U/L Total Protein 7.8 (6.3-8.2) g/dL Albumin 4.4 (3.5-5.0) g/dL Globulin 3.4 (1.7-4.1) g/dL Albumin/Globulin Ratio 1.3 (1.0-2.8) Lipase 106 (23-300) U/L Procalcitonin 0.08 (<0.5) ng/mL Urine RBC (0-5/HPF) Urine WBC (0-5/HPF) Ur Squamous Epith Cells (0-5/HPF) Urine Bacteria (None) Ur Culture Indicated? SARS-CoV-2 (PCR) (Negative) Urine Dip Bedside Urine Glucose Negative Bedside Urine Bilirubin - Negative Bedside Urine Ketone - Negative Urine Specific [place] 1.020 Bedside Urine Occult Blood +/- Bedside Urine pH 6.0 Bedside Urine Protein - Negative Bedside Urine Urobilinogen - Negative Bedside Urine Nitrite - Negative Bedside Urine Leukocytes - Negative Esterase Point of care testing: Urine Dip Bedside Urine Glucose Negative Bedside Urine Bilirubin - Negative Bedside Urine Ketone - Negative Urine Specific [place] 1.020 Bedside Urine Occult Blood +/- Bedside Urine pH 6.0 Bedside Urine Protein - Negative Bedside Urine Urobilinogen - Negative Bedside Urine Nitrite - Negative Bedside Urine Leukocytes - Negative Esterase Imaging Data Chest x-ray: Radiologist's Impression: [address] [id number] ReportSigned Patient: Flakita Sandhu R#: [id number]: 5Acct:[id number]/Sex: 65 / FDate of Service: 02/05/21Loc: EDAccession Number: [id number] Procedure: XR chest 1V Ordering Provider: Silverio Hill D.O. PROCEDURE: XR CHEST 1V INDICATIONS: suspected sepsis TECHNIQUE: One view of the chest was acquired. COMPARISON: None. FINDINGS: Surgical changes and devices: None. Lungs and pleura: Lungs are clear. No pleural effusions or pneumothorax. Mediastinum: Mediastinal contours appear normal. Heart size is normal. Bones and chest wall: No suspicious bony lesions. Overlying soft tissues appear unremarkable. IMPRESSION: Left lower lobe infiltrates suspicious for pneumonia. Dictated by: Zeny Crouch M.D. on 02/05/2021 at 18:48 Approved by: Zeny Crouch M.D. on 02/05/2021 at 18:49 ECG Data Attestation: I personally reviewed and interpreted this ECG as follows: Interpretation: Sinus tachycardia Ventricular rate wanted to Normal axis Normal QRS Normal QTC Nonspecific ST T wave changes MDM Narrative Medical decision making narrative: Patient was tachypneic and tachycardic upon arrival but her heart rate improved without any intervention. She is a clear lung exam. Chest x-ray is concerning for left lower lobe pneumonia. This does fit her clinical presentation. Low suspicion for ACS. Will treat with antibiotics. Was given 1st dose here in the ER. Patient is not requiring oxygen. Will discharge home with a prescription for the remainder the course. She was given strict return precautions. She expressed understanding and agreement. Discharge Plan Departure Patient Disposition: Home Clinical Impression: Pneumonia Instructions: DI for Pneumonia -- Adult Activity Restrictions/Additional Instructions: Your chest x-ray today is concerning for left-sided pneumonia. Your given your 1st dose of antibiotics here in the emergency department in the remainder of the course was electronically transmitted to [facility]. Contact your primary provider for follow-up. Return to the emergency department for any new or worsening symptoms Prescriptions: New azithromycin 250 mg tablet 250 mg PO DAILY 4 Days Qty: 4 RF: 0 No Action estradiol [Vagifem] 10 mcg tablet 10 mcg VAG 2XW Qty: 26 RF: 3 diazepam 5 mg tablet 5 mg PO BEDTIME PRNRF: 0 levothyroxine 50 mcg capsule 100 mcg PO DAILY Qty: 180 RF: 3 bupropion HCl 200 mg tablet extended release 12 hr 200 mg PO DAILY RF: 0 aspirin 81 mg tablet,delayed release (DR/EC) 81 mg PO DAILY RF: 0 ibuprofen 600 mg tablet 600 mg PO QID PRNRF: 0 Referrals: Daniel Henriquez ARNP [Primary Care Provider] -
[2021-02-05] MEDS: AZITHROMYCIN 500 MG in DEXTROSE 5% IN WATER 250 ML IV (19:58)
[2021-02-05 20:00] VITALS: BP 166/93; PULSE 91; RESP 34; O2SAT 97
[2021-02-05 20:47] VITALS: BP 154/95; PULSE 93; RESP 27; TEMP 37.2; O2SAT 95
== END 2021-02-05 21:06 | disposition home or self-care (01) ==
PROVIDERS: Emergency Provider Emergency Medicine; PCP Nurse Practitioner Family
DX: J18.9 Pneumonia, unspecified organism (principal); R05 Cough; R11.0 Nausea; R00.0 Tachycardia, unspecified; Z20.822 Contact with and (suspected) exposure to COVID-19
CPT/HCPCS: 36415; 71045; 80053; 81003; 81015; 83605; 83690; 84145; 85025; 87040; 87635; 93005; 96365; 99284; C9803

== ENCOUNTER → 2021-02-19 14:39 | Outpatient (CLI) | payer OTHER, SELFPAY ==
--- NOTE | 2021-02-19 14:42 | DI.RAD.S_ITS ---
PROCEDURE: XR CHEST 2V INDICATIONS: History of recent pneumonia TECHNIQUE: 2 views of the chest were acquired. COMPARISON: [facility], CR, XR CHEST 1V, 02/05/2021, 18:31. FINDINGS: Surgical changes and devices: None. Lungs and pleura: Lungs are clear. No pleural effusions or pneumothorax. Mediastinum: Mediastinal contours are normal. Heart size is normal. Bones and chest wall: No suspicious bony abnormalities. Soft tissues appear unremarkable. IMPRESSION: No acute cardiopulmonary process demonstrated radiographically. Dictated by: Ivan Sandhu M.D. on 02/19/2021 at 14:59 Approved by: Ivan Sandhu M.D. on 02/19/2021 at 15:00
== END ==
PROVIDERS: PCP Nurse Practitioner Family; Referring Provider Nurse Practitioner Family; Visit Provider Nurse Practitioner Family
DX: J18.9 Pneumonia, unspecified organism (principal)
CPT/HCPCS: 71046

== ENCOUNTER → 2021-05-21 07:12 | Outpatient (CLI) | payer OTHER, SELFPAY ==
[2021-05-21 08:55] LABS: Hematocrit 38.8 % (36-46); Hemoglobin 12.7 g/dL (12.0-16.0); Mean Corpuscular HGB Conc 32.7 % (30-36); Mean Corpuscular Hemoglobin 29.6 PG (26-34); Mean Corpuscular Volume 90.6 fL (80-100); Platelet Count 320 X10^3/uL (150-400); Red Blood Cell Count 4.28 X10^6/uL (4.0-5.2); Red Cell Distribution Width 14.1 % (11.6-14.8); White Blood Cell Count 6.7 X10^3/uL (4.5-11.0)
[2021-05-21 09:15] LABS: Alanine Aminotransferase 15 IU/L (<35); Albumin 4.4 g/dL (3.5-5.0); Albumin Globulin Ratio 1.6 (1.0-2.8); Alkaline Phosphatase 51 U/L (38-126); Aspartate Aminotransferase 19 IU/L (14-36); BUN Creatinine Ratio 21.3 (6-22); Bilirubin Total 0.3 mg/dL (0.2-1.3); Blood Urea Nitrogen 17 mg/dL (7-17); Calcium 9.3 mg/dL (8.4-10.2); Carbon Dioxide 28 mmol/L (22-32); Chloride 103 mmol/L (98-107); Cholesterol 230 mg/dL (140-199); Estimated Glomerular Filt Rate > 60.0 mL/min (>60); Globulin 2.8 g/dL (1.7-4.1); Glucose 88 mg/dL (80-110); HDL Cholesterol 48 mg/dL (40-60); HEMOLYSIS < 15 (0-50); LDL Cholesterol Calculated 136 mg/dL (<100); Potassium 4.7 mmol/L (3.4-5.1); Sodium 140 mmol/L (137-145); Total Protein 7.2 g/dL (6.3-8.2); Triglycerides 231 mg/dL (35-150)
[2021-05-21 09:31] LABS: Free T4, Direct Thyroxine 1.34 ng/dL (0.78-2.19)
[2021-05-21 09:45] LABS: Thyroid Stimulating Hormone 2.27 uIU/mL (0.47-4.68)
== END ==
PROVIDERS: PCP Nurse Practitioner Family; Referring Provider Nurse Practitioner Family; Visit Provider Nurse Practitioner Family
DX: Z00.00 Encounter for general adult medical examination without abnormal findings (principal); E03.9 Hypothyroidism, unspecified; E78.2 Mixed hyperlipidemia
CPT/HCPCS: 36415; 80053; 80061; 84439; 84443; 85027

== ENCOUNTER → 2021-07-22 15:57 | Outpatient (CLI) | payer OTHER, SELFPAY ==
[2021-07-22 17:41] LABS: COVID19 -Nasal RAPID Negative (Negative)
== END ==
PROVIDERS: PCP Nurse Practitioner Family; Visit Provider Registered Nurse Diabetes Educator
DX: Z20.822 Contact with and (suspected) exposure to COVID-19 (principal)
CPT/HCPCS: 87635

== ENCOUNTER → 2021-07-22 16:07 | Outpatient (CLI) | payer OTHER, SELFPAY ==
--- NOTE | 2021-07-22 16:09 | DI.RAD.S_ITS ---
PROCEDURE: XR CHEST 1V INDICATIONS: Eval dry cough/dyspnea/with TECHNIQUE: One view of the chest was acquired. COMPARISON: [facility], CR, XR CHEST 1V, 02/05/2021, 18:31. [facility], CR, XR RIBS BI 3V, 07/22/2021, 16:02. [facility], CR, XR CHEST 2V, 02/19/2021, 14:46. FINDINGS: Surgical changes and devices: None. Lungs and pleura: Lungs are clear. No pleural effusions or pneumothorax. Mediastinum: Mediastinal contours appear normal. Heart size is normal. Bones and chest wall: No suspicious bony lesions. Overlying soft tissues appear unremarkable. IMPRESSION: No acute cardiopulmonary disease. Dictated by: Louis Logan RRA Interpreted: Ivan Sandhu MD on 07/22/2021 at 16:35 Transcribed by: DAMARIS on 07/22/2021 at 16:35 Approved by: Iavn Sandhu M.D. on 07/24/2021 at 16:01
--- NOTE | 2021-07-22 16:09 | DI.RAD.S_ITS ---
PROCEDURE: XR RIBS BI 3V INDICATIONS: Eval dry cough/dyspnea/with TECHNIQUE: To views of the bilateral ribs were acquired. COMPARISON: None. FINDINGS: Surgical changes and devices: None. Bones and chest wall: No fractures or dislocations. No suspicious bony lesions. Overlying soft tissues appear unremarkable. Lungs and pleura: The visualized lung appears clear. No pleural effusions or pneumothorax are visible. IMPRESSION: No displaced left or right rib fracture seen. Dictated by: Louis Logan Denisa Interpreted: Ivan Sandhu MD on 07/22/2021 at 16:47 Transcribed by: DAMARIS on 07/22/2021 at 16:48 Approved by: Ivan Sandhu M.D. on 07/24/2021 at 16:01
== END ==
PROVIDERS: PCP Nurse Practitioner Family; Referring Provider Registered Nurse Diabetes Educator; Visit Provider Registered Nurse Diabetes Educator
DX: R05.9 Cough, unspecified (principal); R06.00 Dyspnea, unspecified; R07.81 Pleurodynia; Z20.822 Contact with and (suspected) exposure to COVID-19
CPT/HCPCS: 71045; 71110; 87635

== ENCOUNTER → 2021-08-23 14:30 | Outpatient (CLI) | payer OTHER, SELFPAY ==
--- NOTE | 2021-08-23 | DI.CT.S_ITS ---
PROCEDURE: CT LUNG LOW DOSE SCREENING INDICATIONS: Tobacco use TECHNIQUE: Noncontrast 2.0-2.5 mm thick sections acquired from the pulmonary apices to the posterior costophrenic angles. 7 mm thick axial MIP, and 5 mm coronal and sagittal reformats were then acquired. A low radiation dose technique was utilized. COMPARISON: None. FINDINGS: Image quality: Diagnostic, given the low radiation dose technique. Lungs and pleura: No acute consolidation. No pleural effusion or pneumothorax. A 3 mm solid nodule is seen in the anterior left upper lobe (112/3). A 2 mm calcified granuloma is seen in the anterior right upper lobe (165/3). Mediastinum: Heart size is normal. No pericardial effusion. Moderate coronary artery calcifications. No mediastinal adenopathy by size criteria. Thoracic aorta and central pulmonary arteries are normal in size. Mild aortic atherosclerotic calcifications. A retropharyngeal course of the common carotid arteries is noted. Esophagus is normal in caliber. No hiatal hernia. Bones and chest wall: No suspicious bony lesions. No vertebral body compression fractures. No axillary or supraclavicular adenopathy by size criteria. Thyroid gland appear small. Abdomen: Visualized upper abdomen solid organs and bowel loops appear normal in the absence of contrast. IMPRESSION: 1. No suspicious pulmonary nodule is seen. 2. Moderate coronary artery calcifications. LUNG-RADS category 2: Benign appearance or behavior. Recommend continued annual screening with low-dose chest CT in 12 months Dictated by: Gabriel Kaur M.D. on 08/23/2021 at 16:04 Approved by: Gabriel Kaur M.D. on 08/23/2021 at 16:11
== END ==
PROVIDERS: PCP Nurse Practitioner Family; Referring Provider Registered Nurse Diabetes Educator; Visit Provider Registered Nurse Diabetes Educator
DX: I25.10 Atherosclerotic heart disease of native coronary artery without angina pectoris (principal); Z72.0 Tobacco use
CPT/HCPCS: 71250

== ENCOUNTER 2022-01-20 09:22 | Emergency (ER) | payer OTHER, SELFPAY ==
[2022-01-20 09:36] VITALS: BP 140/81; PULSE 85; RESP 20; TEMP 35.8; O2SAT 96; BMI 31.4
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
[2022-01-20] MEDS: LIDO 1%/SOD BICARB 8.4% (10ML) 10 ML SYRINGE INJ (12:33)
--- NOTE | 2022-01-20 12:38 | ED_ITS ---
HPI - Extremity Injury (Upper) <Jm Quesada PA-C - Last Filed: 01/20/22 20:11> General Chief Complaint: Extremity Injury, Upper Stated Complaint: Left pinky finger lac Time Seen by Provider: 01/20/22 11:59 Source: patient Mode of arrival: Ambulatory History of Present Illness HPI narrative: Patient is a 66-year-old female who presents to the emergency department for an evaluation of a left small finger laceration. Patient explains that she was using a sharp knife to separate 2 pieces of frozen chicken when she accidentally cut into her left small finger. Of note, patient denies pain or injury elsewhere. She denies fever, chills, chest pain, cough, shortness of breath, nausea, vomiting, diarrhea, constipation, abdominal pain, dysuria, hematuria, or any other concerning symptoms. No further concerns were voiced at this time. Related Data Home Medications Medication Instructions Recorded Confirmed aspirin 81 mg tablet,delayed 81 mg PO DAILY 01/15/18 07/22/21 release bupropion HCl 200 mg tablet,12 hr 200 mg PO DAILY 01/15/18 07/22/21 sustained-release ibuprofen 600 mg tablet 600 mg PO QID PRN 01/15/18 07/22/21 diazepam 5 mg tablet 5 mg PO BEDTIME PRN 10/16/20 07/22/21 cholestoff PO 05/23/21 07/22/21 Previous Rx's Medication Instructions Recorded albuterol sulfate 90 mcg/actuation 2 puff inhalation Q6H PRN 02/22/21 aerosol inhaler shortness of breath or wheezing #6.7 grams estradiol 10 mcg vaginal tablet 10 mcg vaginal 2XW #26 tabs 05/23/21 (Vagifem) levothyroxine 100 mcg tablet 100 mcg PO DAILY #90 tabs 08/13/21 Allergies Allergy/AdvReac Type Severity Reaction Status Date / Time Opioids - Morphine Analogues AdvReac Verified 07/22/21 15:36 Review of Systems <Jm Quesada PA-C - Last Filed: 01/20/22 20:11> Constitutional Constitutional: Denies chills, Denies fatigue, Denies fever(s), Denies frequent falls, Denies lethargy and Denies weakness ENT Ears, Nose, Mouth, and Throat: Denies neck pain Cardiovascular Cardiovascular: Denies chest pain, Denies irregular heart rhythm, Denies lightheadedness, Denies palpitations, Denies dyspnea, Denies dyspnea on exertion and Denies orthopnea Respiratory Respiratory: Denies cough, Denies dyspnea, Denies dyspnea on exertion and Denies wheezing Gastrointestinal Gastrointestinal: Denies abdominal pain, Denies change in bowel habits, Denies diarrhea, Denies nausea and Denies vomiting Genitourinary Genitourinary: Denies hematuria, Denies flank pain, Denies urinary incontinence and Denies urinary urgency Musculoskeletal Musculoskeletal: Denies back pain, Denies muscle weakness, Denies neck pain, Denies numbness and Denies tingling Integumentary/Breasts Skin/Breast: Denies pruritus, Denies erythema, Denies rash and Reports wounds (Left small finger laceration) Neurologic Neurologic: Denies frequent falls, Denies numbness, Denies tingling and Denies weakness Endocrine Endocrine: Denies fatigue and Denies palpitations Allergic/Immunologic Allergic/Immunologic: Denies wheezing Patient History <Jm Quesada PA-C - Last Filed: 01/20/22 20:11> Medical History (Updated 01/20/22 @ 12:41 by Jm Quesada PA-C) Ankle pain Encounter for routine gynecological examination (11/14/20) Encounter for wellness examination in adult (11/14/20) Fibroids Foot pain (~2017) Fractures Frequent UTI History of hepatitis C (~1973) Hypothyroidism (~2013) Kidney stones (~1979) Left knee pain Mixed hyperlipidemia (11/2020) Pernicious anemia (~2014) Post-menopausal Right shoulder pain Seizures Shingles (1979) Vertigo (~2015) Surgical History Anesthesia Bunion (~1972) History of appendectomy (~1960) History of section History of elbow surgery (~01/16/20) History of left knee surgery (~11/2016) History of surgery on right wrist (~04/04/19) History of tonsillectomy (~1971) History of total right hip arthroplasty (~09/2015) Status post arthroscopic surgery of right knee (~2008) Trigger finger of right thumb (~2012) Family History Father COPD (chronic obstructive pulmonary disease) History of heart disease Cancer Mother Breast cancer Mental health problem Brother Skin cancer Sister Diabetes mellitus Obesity Grandfather Stroke Arthritis Grandmother No problems noted. Grandfather History of heart disease Arthritis Grandmother Mental health problem Social History Smoking Status: Former smoker Tobacco: How many years used: 25 second hand exposure: No alcohol intake: current (1-2x/week) substance use type: does not use Smoking Status: Former smoker alcohol intake frequency: a few times a week Alcohol type: wine Substance Use Type: does not use Exam <mJ Quesada PA-C - Last Filed: 01/20/22 20:11> Narrative Exam Narrative: GENERAL: 66 year old patient appears stated age. Well-developed patient, in no acute distress. HEAD: Atraumatic. Normocephalic. EYES: Pupils equal round and reactive. Extraocular motions intact. No scleral icterus. No injection or drainage. ENT: Nose without bleeding, purulent drainage. Throat without erythema, tonsillar hypertrophy or exudate. Airway patent. NECK: Trachea midline. Non tender CARDIOVASCULAR: Regular rate and rhythm without murmurs, gallops, or rubs. RESPIRATORY: Clear to auscultation. Breath sounds equal bilaterally. No wheezes, rales, or rhonchi. GASTROINTESTINAL: Abdomen soft, non-tender, nondistended. EXTREMITIES: No edema or joint tenderness. BACK: Nontender without deformity or crepitance. No flank tenderness. NEURO: AOx3. SKIN: No rash or erythema of visible areas. Approximately 1.25 cm linear laceration noted to the interdigital web spacing of the dorsal aspect of the left hand between the 5th and 4th digits. No active discharge appreciated, no foreign bodies. Pain within the laceration. No deep tissue structures appear involved. Gross motor function intact throughout the bilateral upper extremities. Gross motor function intact throughout the bilateral lower extremities. Initial Vital Signs Initial Vital Signs: Vital Signs Temperature 96.4 F L 01/20/22 09:36 Pulse Rate 85 01/20/22 09:36 Respiratory Rate 20 01/20/22 09:36 Blood Pressure 140/81 01/20/22 09:36 Pulse Oximetry 96 01/20/22 09:36 Oxygen Delivery Method 01/20/22 09:36 <Teri Kirkpatrick DO - Last Filed: 01/26/22 12:53> Initial Vital Signs Initial Vital Signs: Vital Signs Temperature 96.4 F L 01/20/22 09:36 Pulse Rate 85 01/20/22 09:36 Respiratory Rate 20 01/20/22 09:36 Blood Pressure 140/81 01/20/22 09:36 Pulse Oximetry 96 01/20/22 09:36 Oxygen Delivery Method 01/20/22 09:36 Procedures <Jm Quesada PA-C - Last Filed: 01/20/22 20:11> Laceration Repair Laceration 1: Time of procedure: 12:38 Site: hand (Interdigital webspace of 4th and 5th digits) Side (If applicable): left Size (cm): 1.2 Description: linear Depth: simple, single layer Local Anesthetic: lidocaine 1% Amount of anesthesia used (mL): 3 Pre-repair: wound explored, irrigated extensively, deep structures intact and cleansed with chlorhexadine Skin layer closed with: nylon Skin layer suture size: 5-0 Number of sutures: 4 Technique: simple, interrupted Course <Jm Quesada PA-C - Last Filed: 01/20/22 20:11> Course Course Narrative: 1% lidocaine used for anesthetic. Wound cleansed with chlorhexidine. Wound edges approximated with nylon sutures. Orders Ordered: Discontinued Medications Acetaminophen (Acetaminophen 325 Mg Tablet) 650 mg PO NOW ONE Stop: 01/20/22 12:42 Last Admin: 01/20/22 12:50 Dose: 650 mg Documented By: JACLYN Bacitracin (Bacitracin Oint 0.9 Gm Pckt) 1 applic TOP NOW ONE Stop: 01/20/22 12:44 Last Admin: 01/20/22 12:50 Dose: 1 applic Documented By: CTS Vital Signs Vital signs: Vital Signs - 8 hr 01/20/22 09:36 Temperature 96.4 F L Pulse Rate 85 Respiratory Rate 20 Blood Pressure 140/81 Pulse Oximetry 96 Oxygen Delivery Method Room Air <Teri Kirkpatrick DO - Last Filed: 01/26/22 12:53> Orders Ordered: Discontinued Medications Acetaminophen (Acetaminophen 325 Mg Tablet) 650 mg PO NOW ONE Stop: 01/20/22 12:42 Last Admin: 01/20/22 12:50 Dose: 650 mg Documented By: JACLYN Bacitracin (Bacitracin Oint 0.9 Gm Pckt) 1 applic TOP NOW ONE Stop: 01/20/22 12:44 Last Admin: 01/20/22 12:50 Dose: 1 applic Documented By: CTS Vital Signs Vital signs: Vital Signs - 8 hr 01/20/22 09:36 Temperature 96.4 F L Pulse Rate 85 Respiratory Rate 20 Blood Pressure 140/81 Pulse Oximetry 96 Oxygen Delivery Method Room Air MDM - Extremity Injury (Upper) <Jm Quesada PA-C - Last Filed: 01/20/22 20:11> MDM Narrative Medical decision making narrative: Differential diagnosis to consider but not limited to superficial skin laceration versus deep tissue laceration versus abscess. Physical examination reassuring. Wound edges were approximated well with nylon sutures in the emergency department. I provided wound care instructions to the patient and urged to have the the wound evaluated in approximately 7 days to see if it is appropriate for suture removal. Patient expresses understanding and agrees to plan. Strict return precautions were discussed with the patient prior to discharge. Discharge Plan Departure Patient Disposition: Home Clinical Impression: Laceration of left little finger Instructions: DI for Laceration Repair Activity Restrictions/Additional Instructions: *You have been diagnosed with left little finger laceration *What to do: *Please continue to take your regular medications as directed. [ ] New medication prescriptions sent to your pharmacy: [ ] [ ] New medication written as a paper prescription [X] No new medications given You were evaluated in the emergency department today for a laceration to your left small finger. Wound edges were brought together well with sutures in the emergency department. The sutures need to remain in place for 7-10 days. Please follow-up with the primary care provider, visit walk-in clinic, visit urgent care, or return to the emergency department after sutures removed. Please refrain from soaking the laceration site until completely healed. Do not hesitate to return to the emergency department if you experience fever, swelling around the laceration site, discharge from the laceration, or any other concerning symptoms. *Please follow up with your primary care provider in 2-3 days, call for an appointment. Let them know you were seen in the Emergency Department and that we ask that you be seen in follow up. We will electronically transmit a record of today's note if your PCP is in our system *If you do not have a primary care provider please contact the [facility] Resource line at [phone]. They will ask some questions about your medical history and help get you set up with a doctor in the community. *Return to Emergency Department if you should have any new, worsening or concerning symptoms, such as fever greater than 101 F, shaking chills, worsening pain, persistent vomiting or other bothersome symptoms. Prescriptions: No Action albuterol sulfate 90 mcg/actuation HFA aerosol inhaler 2 puff inhalation Q6H PRN (Reason: shortness of breath or wheezing) Qty: 6.7 0RF Rx Instructions: 2 puffs every 6 hours as needed levothyroxine 100 mcg tablet 100 mcg PO DAILY Qty: 90 2RF diazepam 5 mg tablet 5 mg PO BEDTIME PRN cholestoff PO estradiol [Vagifem] 10 mcg tablet 10 mcg VAG 2XW Qty: 26 3RF bupropion HCl 200 mg tablet extended release 12 hr 200 mg PO DAILY aspirin 81 mg tablet,delayed release (DR/EC) 81 mg PO DAILY ibuprofen 600 mg tablet 600 mg PO QID PRN Referrals: Enma Garduno ARNP [Primary Care Provider] - Visit Report Forms: Patient Portal/API <Teri Kirkpatrick DO - Last Filed: 01/26/22 12:53> Cosign ED Attending Ernestoature Attestation: I was immediately available in the department for consultation. Documentation has been reviewed.
[2022-01-20] MEDS: ACETAMINOPHEN 325 MG TABLET 650 MG PO (12:50)
[2022-01-20] MEDS: BACITRACIN OINT 0.9 GM PCKT 1 APPLIC TOP (12:50)
== END 2022-01-20 12:52 | disposition home or self-care (01) ==
PROVIDERS: Emergency Provider Physician Assistant; PCP Nurse Practitioner
DX: S61.217A Laceration without foreign body of left little finger without damage to nail, initial encounter (principal); W26.0XXA Contact with knife, initial encounter
CPT/HCPCS: 12001; 73130; 99283; 99284

== ENCOUNTER → 2022-05-09 13:01 | Outpatient (CLI) | payer OTHER, SELFPAY ==
--- NOTE | 2022-05-09 13:02 | DI.MG.S_ITS ---
BILATERAL DIGITAL SCREENING MAMMOGRAM 3D/2D WITH CAD: 05/09/2022 CLINICAL: Routine screening. Family history of breast cancer. Comparison is made to exams dated: 12/28/2020 mammogram - [facility], 06/30/2018 mammogram, and 06/10/2017 mammogram - [facility]. There are scattered areas of fibroglandular density in both breasts (category b / 25%-50% glandular tissue). Current study was also evaluated with a Computer Aided Detection (CAD) system. There are benign calcifications in both breasts. No significant masses, calcifications, or other findings are seen in either breast. There has been no significant interval change. IMPRESSION: BENIGN There is no mammographic evidence of malignancy. A 1 year screening mammogram is recommended. This exam was interpreted at Station ID: [id number]. NOTE: For mammograms, a report in lay terms will be sent to the patient. Approximately 15% of breast malignancies will not be visualized mammographically. In the management of a palpable breast mass, a negative mammogram must not discourage biopsy of a clinically suspicious lesion. Electronically Signed By: Marino regalado/jennifer:05/09/2022 16:09:49 letter sent: Normal Exam ACR BI-RADS Category 2: Benign Finding(s) 3342F
== END ==
PROVIDERS: PCP Nurse Practitioner; Referring Provider Nurse Practitioner; Visit Provider Nurse Practitioner
DX: Z12.31 Encounter for screening mammogram for malignant neoplasm of breast (principal); Z80.3 Family history of malignant neoplasm of breast
CPT/HCPCS: 77063; 77067

== ENCOUNTER → 2022-05-31 08:52 | Outpatient (CLI) | payer OTHER, SELFPAY ==
[2022-05-31 09:27] LABS: Add Manual Diff / Slide Review NO; Basophils Absolute Auto 0 /uL (0-100); Basophils Percent Auto 0.8 % (0-2); Eosinophils Absolute Auto 100 /uL (0-450); Eosinophils Percent Auto 2.5 % (2-4); Hematocrit 37.8 % (36-46); Hemoglobin 12.5 g/dL (12.0-16.0); Lymphocytes Absolute Auto 1900 /uL (1100-4500); Lymphocytes Percent Auto 36.3 % (25-40); Mean Corpuscular Hemoglobin 29.9 PG (26-34); Mean Corpuscular Volume 90.5 fL (80-100); Monocytes Absolute Auto 500 /uL (0-900); Monocytes Percent Auto 9.5 % (3-14); Neutrophils Absolute Auto 2600 /uL (1500-7000); Neutrophils Percent Auto 50.9 % (50-75); Platelet Count 290 X10^3/uL (150-400); Red Blood Cell Count 4.18 X10^6/uL (4.0-5.2); Red Cell Distribution Width 14.3 % (11.6-14.8); White Blood Cell Count 5.2 X10^3/uL (4.5-11.0)
[2022-05-31 09:37] LABS: Alanine Aminotransferase 24 IU/L (<35); Albumin 4.3 g/dL (3.5-5.0); Albumin Globulin Ratio 1.5 (1.0-2.8); Alkaline Phosphatase 60 U/L (38-126); Aspartate Aminotransferase 20 IU/L (14-36); BUN Creatinine Ratio 18.1 (6-22); Bilirubin Total 0.4 mg/dL (0.2-1.3); Blood Urea Nitrogen 15 mg/dL (7-17); Calcium 8.9 mg/dL (8.4-10.2); Carbon Dioxide 27 mmol/L (22-32); Chloride 104 mmol/L (98-107); Cholesterol 200 mg/dL (140-199); Estimated Glomerular Filt Rate > 60 mL/min (>60); Globulin 2.9 g/dL (1.7-4.1); Glucose 107 mg/dL (80-110); HDL Cholesterol 37 mg/dL (40-60); HEMOLYSIS < 15 (0-50); LDL Cholesterol Calculated 111 mg/dL (<100); Potassium 4.1 mmol/L (3.4-5.1); Sodium 140 mmol/L (137-145); Total Protein 7.2 g/dL (6.3-8.2); Triglycerides 261 mg/dL (35-150)
[2022-05-31 10:08] LABS: Thyroid Stimulating Hormone 3.07 uIU/mL (0.47-4.68)
== END ==
PROVIDERS: PCP Nurse Practitioner; Referring Provider Nurse Practitioner; Visit Provider Nurse Practitioner
DX: Z00.00 Encounter for general adult medical examination without abnormal findings (principal)
CPT/HCPCS: 36415; 80053; 80061; 84443; 85025

== ENCOUNTER → 2022-06-05 12:08 | Outpatient (CLI) | payer OTHER, SELFPAY ==
[2022-06-05 15:40] LABS: Microalbumin Urine Random 0.8 mg/dL (0-1.6)
[2022-06-05 15:44] LABS: Microalbumi Creatinin Ratio Ur 13.7 ug/mg CR (<30)
== END ==
PROVIDERS: PCP Nurse Practitioner; Referring Provider Nurse Practitioner; Visit Provider Nurse Practitioner
DX: I10 Essential (primary) hypertension (principal)
CPT/HCPCS: 82043; 82570

== ENCOUNTER → 2022-06-05 12:13 | Outpatient (CLI) | payer OTHER, SELFPAY ==
--- NOTE | 2022-06-05 12:15 | DI.ECHO.S_ITS ---
[facility] +---------+ : : [address] [address] : : : : [id number] : : : : Phone: [phone]+ Echocardiogram Report + + :Name: CHERISE ROYAL Study Date: 06/05/2022 Height: 66 in : :[facility] ReadingLocation: Weight: 195 lb : : Gender: Female BSA: 2.0 m2 : :: 1955 Age: 66 yrs BP: 128/88 mmHg: :Reason For Study: HYPERTENSION : :Ordering Physician: KEVIN, : :MISAEL Performed By: Natacha Mariee : :Referring: MISAEL BROWN : + + Interpretation Summary Left ventricular ejection fraction is estimated to be 55 +/- 5%. Diastolic parameters suggest probable normal left ventricular diastolic function and normal filling pressures. The right ventricle is normal in size and function. The right ventricular systolic pressure is estimated to be at least 22 mmHg based on an estimated right atrial pressure of 3 mm Hg. No significant valvular disease. Procedure: A two-dimensional transthoracic echocardiogram with color flow and Doppler was performed. The study quality was technically adequate. There is no prior echocardiogram noted for this patient. The patient was in sinus rhythm with heart rates between 76-95 bpm during the exam. Left Ventricle: The left ventricle is normal in size and wall thickness. Left ventricular ejection fraction is estimated to be 55 +/- 5%. There are no obvious focal wall motion abnormalities noted but poor endocardial definition reduces the sensitivity for the detection of such. Diastolic parameters suggest probable normal left ventricular diastolic function and normal filling pressures. Right Ventricle: The right ventricle is normal in size and function. Atria: The left atrial size is normal. Right atrial size is normal. There is no Doppler evidence for an interatrial shunt. Mitral Valve: The mitral valve is normal in structure and function. There is trace mitral regurgitation. Aortic Valve: The aortic valve is trileaflet. The aortic valve opens well. There is no aortic valve stenosis. No aortic regurgitation is present. Tricuspid Valve: The tricuspid valve is normal in structure and function. There is trace tricuspid regurgitation. The right ventricular systolic pressure is estimated to be at least 22 mmHg based on an estimated right atrial pressure of 3 mm Hg. Pulmonic Valve: The pulmonic valve is not well visualized. There is no pulmonic valvular regurgitation. Great Vessels: The aortic root is normal size. The dimensions of the ascending aorta are normal. The IVC is of normal diameter and collapses greater than 50% with a sniff. This suggests a low right atrial pressure of 3 mm Hg. Pericardium/ Pleura There is no pericardial effusion. There is no pleural effusion. MMode/2D Measurements & Calculations LVIDd: 4.8 cm LVOT diam: 2.4 cm LVIDs: 3.5 cm Ao root diam: 3.4 cm FS: 26.7 % asc Aorta Diam: 3.6 cm IVSd: 0.89 cm Ao Arch Diam (Prox Trans): 2.7 cm LVPWd: 0.82 cm LV kasper. diameter/BSA (cm/m^2): 2.4 LV sys. diameter/BSA (cm/m^2): 1.8 LA A2 area: 18.0 cm2 RA long axis: 5.4 cm LA A4 area: 15.5 cm2 RA area: 14.2 cm2 LA length (vol): 4.8 cm RA vol: 32.0 ml LA vol: 49.8 ml RA : 16.2 ml/m2 LA vol index: 25.2 ml/m2 IVC diam: 1.3 cm RVD1 (basal): 3.9 cm RVD2 (mid): 3.3 cm TAPSE: 2.0 cm Doppler Measurements & Calculations Ao V2 max: 137.2 cm/sec LVOT Max Gregorio: 77.2 cm/sec Ao V2 mean: 102.1 cm/sec LV V1 max P.4 mmHg Ao max P.5 mmHg LV V1 VTI: 15.0 cm Ao mean P.6 mmHg LORI(I,D): 2.7 cm2 Ao V2 VTI: 25.3 cm LORI(V,D): 2.5 cm2 sev ratio: 0.59 LORI indexed to BSA (cm^2/m^2): 1.4 MV E max gregorio: 44.9 cm/sec TR max gregorio: 220.0 cm/sec MV A max gregorio: 82.1 cm/sec TR max P.4 mmHg MV E/A: 0.55 PA V2 max: 91.4 cm/sec Med Peak E' Gregorio: 5.8 cm/sec PA V2 mean: 62.5 cm/sec E/E' med: 7.8 PA mean P.8 mmHg Lat Peak E' Gregorio: 4.3 cm/sec PA pr(Accel): 46.5 mmHg E/E' lat: 10.5 E/e' average: 9.1 MV dec time: 0.22 sec SV(LVOT): 68.0 ml Reading Physician:PM
== END ==
PROVIDERS: PCP Nurse Practitioner; Referring Provider Nurse Practitioner; Visit Provider Nurse Practitioner
DX: I10 Essential (primary) hypertension (principal)
CPT/HCPCS: 82043; 82570; 93005; 93306

== ENCOUNTER → 2022-06-23 09:47 | Outpatient (CLI) | payer OTHER, SELFPAY ==
--- NOTE | 2022-06-23 09:47 | DI.RAD.S_ITS ---
PROCEDURE: XR HIP W PEL IF DONE RT 2V INDICATIONS: Right hip pain s/p replacement TECHNIQUE: AP pelvis and lateral view of the right hip acquired. COMPARISON: None. FINDINGS: Bones: Patient is status post right hip arthroplasty, with hardware components in expected positions. No evidence of hardware loosening or failure. No fracture or dislocation. Moderate left hip joint osteoarthritic changes are seen. Soft tissues: Overlying postoperative changes are noted. No suspicious soft tissue densities. IMPRESSION: Prior right total hip arthroplasty. Anatomic right hip alignment. No gross hardware complication. No fracture or dislocation. Dictated by: Mark Graham M.D. on 06/23/2022 at 10:30 Approved by: Mark Graham M.D. on 06/23/2022 at 10:31
== END ==
PROVIDERS: PCP Nurse Practitioner; Referring Provider Nurse Practitioner; Visit Provider Nurse Practitioner
DX: M25.551 Pain in right hip (principal); Z96.641 Presence of right artificial hip joint
CPT/HCPCS: 73502

== ENCOUNTER → 2022-09-22 08:08 | Outpatient (CLI) | payer MEDICARE, OTHER, SELFPAY ==
--- NOTE | 2022-09-22 08:12 | DI.CT.S_ITS ---
PROCEDURE: CT CHEST WO CON INDICATIONS: Personal history of nicotine dependence TECHNIQUE: Noncontrast 5 mm thick sections acquired from the pulmonary apices to the posterior costophrenic angles. 1 mm lung window, 5 mm thick coronal and sagittal and 7 mm axial MIP reformats were then acquired. For radiation dose reduction, the following was used: automated exposure control, adjustment of mA and/or kV according to patient size. COMPARISON: [facility], CT, CT LUNG LOW DOSE SCREENING, 08/23/2021, 14:34. FINDINGS: Image quality: Adequate Lungs and pleura: Previously indexed 3 mm anterior left upper lobe nodule is unchanged (). No definite new suspicious or enlarging pulmonary nodule. No consolidation or pleural effusion. Mediastinum: No pericardial effusion. Thoracic aorta and central pulmonary arteries are normal in size. Esophagus is normal in caliber. Multivessel coronary artery calcifications and/or stents. Bones and chest wall: Multilevel degenerative change of the visualized spine. No axillary or supraclavicular adenopathy by size criteria. Abdomen: Visualized upper abdominal solid organs and bowel loops appear normal in the absence of contrast. IMPRESSION: No significant interval change in the previously indexed tiny anterior left upper lobe pulmonary nodule. No definite new suspicious or enlarging pulmonary nodule. Dictated by: Gabriel Grimes M.D. on 09/22/2022 at 17:52 Approved by: Gabriel Grimes M.D. on 09/22/2022 at 18:02
[2022-09-22 09:21] LABS: Cholesterol 242 mg/dL (140-199); HDL Cholesterol 41 mg/dL (40-60); LDL Cholesterol Calculated 133 mg/dL (<100); Triglycerides 342 mg/dL (35-150)
== END ==
PROVIDERS: PCP Nurse Practitioner; Referring Provider Nurse Practitioner; Visit Provider Nurse Practitioner
DX: R91.1 Solitary pulmonary nodule (principal); E78.2 Mixed hyperlipidemia; Z87.891 Personal history of nicotine dependence
CPT/HCPCS: 36415; 71250; 80061

== ENCOUNTER → 2023-01-19 10:29 | Outpatient (CLI) | payer MEDICARE, OTHER, SELFPAY ==
[2023-01-19 12:05] LABS: Add Manual Diff / Slide Review NO; Basophils Absolute Auto 100 /uL (0-100); Eosinophils Absolute Auto 200 /uL (0-450); Eosinophils Percent Auto 2.8 % (2-4); Hematocrit 37.8 % (36-46); Hemoglobin 12.6 g/dL (12.0-16.0); Lymphocytes Absolute Auto 2400 /uL (1100-4500); Mean Corpuscular HGB Conc 33.5 % (30-36); Mean Corpuscular Volume 89.6 fL (80-100); Monocytes Absolute Auto 500 /uL (0-900); Monocytes Percent Auto 7.8 % (3-14); Neutrophils Absolute Auto 3200 /uL (1500-7000); Neutrophils Percent Auto 50.4 % (50-75); Platelet Count 336 X10^3/uL (150-400); Red Blood Cell Count 4.22 X10^6/uL (4.0-5.2); Red Cell Distribution Width 13.8 % (11.6-14.8); White Blood Cell Count 6.4 X10^3/uL (4.5-11.0)
[2023-01-19 12:52] LABS: Prothrombin Time 11.4 SECONDS (10.1-12.7)
[2023-01-19 13:01] LABS: Alanine Aminotransferase 20 IU/L (<35); Albumin 4.2 g/dL (3.5-5.0); Albumin Globulin Ratio 1.4 (1.0-2.8); Alkaline Phosphatase 60 U/L (38-126); Aspartate Aminotransferase 19 IU/L (14-36); Bilirubin Total 0.3 mg/dL (0.2-1.3); Blood Urea Nitrogen 20 mg/dL (7-17); Carbon Dioxide 28 mmol/L (22-32); Chloride 100 mmol/L (98-107); Estimated Glomerular Filt Rate > 60 mL/min (>60); Glucose 93 mg/dL (80-110); HEMOLYSIS < 15 (0-50); Sodium 137 mmol/L (137-145); Total Protein 7.2 g/dL (6.3-8.2)
[2023-01-19 13:45] LABS: Appearance Urine UA CLEAR; Bilirubin Urine UA NEGATIVE (NEGATIVE); Color Urine UA YELLOW; Glucose Urine UA NEGATIVE (Negative); Ketones Urine UA NEGATIVE (NEGATIVE); Leukocyte Esterase Urine UA NEGATIVE (NEGATIVE); Nitrite Urine UA NEGATIVE (Negative); Occult Blood Urine UA NEGATIVE (Negative); Protein Urine UA NEGATIVE (Negative); Urobilinogen Urine UA 0.2 E.U./dL (0.2)
[2023-01-19 13:50] LABS: pH Urine UA 5.5 (4.5-8.0)
[2023-01-19 14:11] LABS: Bacteria Urine None Seen; Culture Indicated Urine Cult Not Indicated; RBC Urine None Seen (0-5/HPF); Squamous Epithelial Cell Urine None Seen (0-5/HPF); WBC Urine None Seen (0-5/HPF)
== END ==
PROVIDERS: PCP Nurse Practitioner; Referring Provider Nurse Practitioner; Visit Provider Nurse Practitioner
DX: Z01.810 Encounter for preprocedural cardiovascular examination (principal); Z01.812 Encounter for preprocedural laboratory examination; I10 Essential (primary) hypertension; E03.9 Hypothyroidism, unspecified; M25.561 Pain in right knee; G89.29 Other chronic pain; Z68.33 Body mass index [BMI] 33.0-33.9, adult
CPT/HCPCS: 36415; 80053; 81001; 85025; 85610; 93005

== ENCOUNTER → 2023-03-11 08:30 | Outpatient (CLI) | payer MEDICARE, OTHER, SELFPAY ==
[2023-03-11 09:56] LABS: Cholesterol 221 mg/dL (140-199); HDL Cholesterol 41 mg/dL (40-60); LDL Cholesterol Calculated 130 mg/dL (<100); Triglycerides 250 mg/dL (35-150)
== END ==
PROVIDERS: PCP Nurse Practitioner; Referring Provider Nurse Practitioner; Visit Provider Nurse Practitioner
DX: E78.2 Mixed hyperlipidemia (principal)
CPT/HCPCS: 36415; 80061

== ENCOUNTER → 2023-03-20 15:18 | Outpatient (CLI) | payer MEDICARE, OTHER, SELFPAY | PROVIDERS: PCP Nurse Practitioner; Visit Provider Nurse Practitioner Family | DX: J02.9 Acute pharyngitis, unspecified (principal) | CPT/HCPCS: 87070 ==

== ENCOUNTER → 2023-05-29 08:38 | Outpatient (CLI) | payer MEDICARE, OTHER, SELFPAY ==
[2023-05-29 10:57] LABS: Alanine Aminotransferase 14 IU/L (<35); Albumin 4.4 g/dL (3.5-5.0); Albumin Globulin Ratio 1.7 (1.0-2.8); Alkaline Phosphatase 42 U/L (38-126); Aspartate Aminotransferase 18 IU/L (14-36); BUN Creatinine Ratio 15.4 (6-22); Bilirubin Total 0.4 mg/dL (0.2-1.3); Blood Urea Nitrogen 12 mg/dL (7-17); Carbon Dioxide 27 mmol/L (22-32); Chloride 100 mmol/L (98-107); Cholesterol 121 mg/dL (140-199); Estimated Glomerular Filt Rate > 60 mL/min (>60); Globulin 2.6 g/dL (1.7-4.1); Glucose 103 mg/dL (80-110); HDL Cholesterol 41 mg/dL (40-60); HEMOLYSIS < 15 (0-50); LDL Cholesterol Calculated 54 mg/dL (<100); Potassium 4.3 mmol/L (3.4-5.1); Sodium 137 mmol/L (137-145); Triglycerides 131 mg/dL (35-150)
== END ==
PROVIDERS: PCP Nurse Practitioner; Referring Provider Family Medicine; Visit Provider Family Medicine
DX: I10 Essential (primary) hypertension (principal); E78.2 Mixed hyperlipidemia
CPT/HCPCS: 36415; 80053; 80061

== ENCOUNTER → 2023-09-11 11:17 | Outpatient (CLI) | payer MEDICARE, OTHER, SELFPAY ==
--- NOTE | 2023-09-11 11:18 | DI.CT.S_ITS ---
PROCEDURE: CT LUNG LOW DOSE SCREENING INDICATIONS: hx of tobacco use TECHNIQUE: Noncontrast 2.0-2.5 mm thick sections acquired from the pulmonary apices to the posterior costophrenic angles. 7 mm thick axial MIP, and 5 mm coronal and sagittal reformats were then acquired. For radiation dose reduction, the following was used: automated exposure control, adjustment of mA and/or kV according to patient size. COMPARISON: [facility], CT, CT LUNG LOW DOSE SCREENING, 08/23/2021, 14:34. FINDINGS: Image quality: Diagnostic. Lower Neck: No enlarged lymph nodes. Thyroid: No thyroid nodules which require sonographic follow up, per consensus guidelines. Axillae: No enlarged lymph nodes. Chest Wall: Unremarkable. Bones: Mild scoliosis. Lungs and Pleura: No pneumothorax or pleural effusions. No consolidation or suspicious nodules. Heart: Heart size is normal. No pericardial effusion. Thoracic Vessels: The aorta and pulmonary arteries demonstrate normal size. Mediastinum and Deirdre: No enlarged lymph nodes. Esophagus: No wall thickening. No hiatal hernia. Upper Abdomen: Visualized upper abdomen solid organs and bowel loops appear normal. IMPRESSION: No suspicious pulmonary nodules. LUNG-RADS 1; continued annual screening, if eligible. Clinically Significant Non-pulmonary Findings: None. Dictated by: Richardson Smith M.D. on 09/11/2023 at 12:45 Approved by: Richardson Smith M.D. on 09/11/2023 at 14:22
== END ==
LOC: CT 11:17
PROVIDERS: PCP Nurse Practitioner; Referring Provider Nurse Practitioner; Visit Provider Nurse Practitioner
DX: Z12.2 Encounter for screening for malignant neoplasm of respiratory organs (principal); Z87.891 Personal history of nicotine dependence
CPT/HCPCS: 71271

== ENCOUNTER → 2024-01-08 07:56 | Outpatient (CLI) | payer MEDICARE, OTHER, SELFPAY ==
[2024-01-08 09:18] LABS: Alanine Aminotransferase 17 IU/L (<35); Albumin 4.3 g/dL (3.5-5.0); Albumin Globulin Ratio 1.8 (1.0-2.8); Alkaline Phosphatase 49 U/L (38-126); Aspartate Aminotransferase 19 IU/L (14-36); BUN Creatinine Ratio 20.9 (6-22); Bilirubin Total 0.5 mg/dL (0.2-1.3); Blood Urea Nitrogen 18 mg/dL (7-17); Calcium 9.4 mg/dL (8.4-10.2); Carbon Dioxide 27 mmol/L (22-32); Chloride 107 mmol/L (98-107); Cholesterol 163 mg/dL (140-199); Estimated Glomerular Filt Rate > 60 mL/min (>60); Globulin 2.4 g/dL (1.7-4.1); Glucose 99 mg/dL (80-110); HDL Cholesterol 60 mg/dL (40-60); HEMOLYSIS < 15 (0-50); LDL Cholesterol Calculated 70 mg/dL (<100); Potassium 4.2 mmol/L (3.4-5.1); Sodium 139 mmol/L (137-145); Total Protein 6.7 g/dL (6.3-8.2); Triglycerides 166 mg/dL (35-150)
[2024-01-08 09:43] LABS: Thyroid Stimulating Hormone 3.16 uIU/mL (0.47-4.68)
== END ==
PROVIDERS: PCP Nurse Practitioner; Referring Provider Nurse Practitioner; Visit Provider Nurse Practitioner
DX: I10 Essential (primary) hypertension (principal); E78.2 Mixed hyperlipidemia; E03.9 Hypothyroidism, unspecified
CPT/HCPCS: 36415; 80053; 80061; 84443

== ENCOUNTER → 2024-06-16 09:07 | Outpatient (CLI) | payer MEDICARE, OTHER, SELFPAY ==
[2024-06-16 11:40] LABS: Adenovirus Not Detected (Not Detect); B. parapertussis Not Detected (Not Detecte); Bordetella pertussis Not Detected (Not Detect); Chlamydophila pneumoniae Not Detected (Not Detect); Coronavirus 229E Not Detected (Not Detect); Coronavirus HKU1 Not Detected (Not Detect); Coronavirus NL 63 Not Detected (Not Detect); Coronavirus OC43 Not Detected (Not Detect); Human Metapneumovirus Not Detected (Not Detect); Human Rhinovirus/Enterovirus Not Detected (Not Detect); Influenza A Not Detected (Not Detect); Influenza B Not Detected (Not Detect); Mycoplasma pneumoniae Not Detected (Not Detect); Parainfluenza Virus 1 Not Detected (Not Detect); Parainfluenza Virus 2 Detected (Not Detect); Parainfluenza Virus 3 Not Detected (Not Detect); Parainfluenza Virus 4 Not Detected (Not Detect); Respiratory Syncytial Virus Not Detected (Not Detect); SARS- CoV-2 Not Detected (Not Detecte)
== END ==
PROVIDERS: PCP Family Medicine; Visit Provider Physician Assistant
DX: R05.3 Chronic cough (principal); R31.9 Hematuria, unspecified; R30.0 Dysuria; J02.9 Acute pharyngitis, unspecified
CPT/HCPCS: 87086; 87633

== ENCOUNTER → 2024-06-21 08:17 | Outpatient (CLI) | payer MEDICARE, OTHER, SELFPAY ==
[2024-06-21 10:01] LABS: Alanine Aminotransferase 16 IU/L (<35); Albumin 4.4 g/dL (3.5-5.0); Albumin Globulin Ratio 1.7 (1.0-2.8); Alkaline Phosphatase 42 U/L (38-126); Aspartate Aminotransferase 24 IU/L (14-36); BUN Creatinine Ratio 17.9 (6-22); Bilirubin Total 0.5 mg/dL (0.2-1.3); Blood Urea Nitrogen 19 mg/dL (7-17); Calcium 9.5 mg/dL (8.4-10.2); Carbon Dioxide 27 mmol/L (22-32); Chloride 105 mmol/L (98-107); Cholesterol 164 mg/dL (140-199); Estimated Glomerular Filt Rate 57 mL/min (>60); Globulin 2.6 g/dL (1.7-4.1); Glucose 105 mg/dL (80-110); HDL Cholesterol 41 mg/dL (40-60); HEMOLYSIS < 15 (0-50); LDL Cholesterol Calculated 86 mg/dL (<100); Potassium 4.3 mmol/L (3.4-5.1); Sodium 138 mmol/L (137-145); Triglycerides 183 mg/dL (35-150)
== END ==
PROVIDERS: PCP Family Medicine; Referring Provider Nurse Practitioner; Visit Provider Nurse Practitioner
DX: I10 Essential (primary) hypertension (principal); E78.2 Mixed hyperlipidemia; F41.9 Anxiety disorder, unspecified; F32.9 Major depressive disorder, single episode, unspecified; E03.9 Hypothyroidism, unspecified; Z79.899 Other long term (current) drug therapy
CPT/HCPCS: 36415; 80053; 80061; 84443

== ENCOUNTER → 2024-10-03 14:30 | Outpatient (CLI) | payer MEDICARE, OTHER, SELFPAY ==
--- NOTE | 2024-10-03 14:31 | DI.RAD.S_ITS ---
PROCEDURE: XR DEXA AXIAL SKELETON INDICATIONS: screening COMPARISON: [facility], , XR DEXA AXIAL SKELETON, 12/28/2020, 15:06. FINDINGS: Lumbar Spine: Bone mineral density 1.216 (previously 1.437) g/cm2, T score 1.5 (previously 2.0). Left Femoral Neck: Bone mineral density 1.021 (previously 1.244) g/cm2, T score 1.5 (previously 1.5) Left Hip: Bone mineral density 1.103 (previously 1.173) g/cm2, T score 1.3 (previously 1.3). Fracture Risk Calculation (when applicable): 10-year fracture risk of a major osteoporotic fracture 8.1 percent and of a hip fracture 0.2 percent. (T score greater or equal to -1.0 to: NORMAL) (T score from -1.1 to -2.4: OSTEOPENIA) (T score less than or equal to -2.5: OSTEOPOROSIS) IMPRESSION: Normal---recommend repeat DEXA as clinically indicated. Follow-up guidelines as follows: Osteoporosis: Consider a repeat DEXA and Vertebral Fracture Assessment (VFA) exam in 2 years or sooner if medically necessary, to reassess this patient's status. Osteopenia: Consider a repeat DEXA in 2-3 years to reassess this patient's status, or if there is a new clinical indication. Normal: Consider a repeat DEXA in 5 years or sooner, or if there is a new clinical indication. All treatment decisions require clinical judgment and consideration of individual patient factors, including patient preferences, comorbidities, previous drug use, risk factors not captured in the FRAX model (e.g., frailty, falls, vitamin D deficiency, increased bone turnover, interval significant decline in bone density ) and possible under- or over-estimation of fracture risk by FRAX. In addition, the NOF Guide recommends that FDA-approved medical therapies be considered in postmenopausal women and men age >= 50 years with a: * Hip or vertebral (clinical or morphometric) fracture * T-score of <=-2.5 at the spine or hip * Ten-year fracture probability by FRAX of >= 3% for hip fracture or >=20% for major osteoporotic fracture. Dictated by: Amadou Palomino M.D. on 10/03/2024 at 21:38 Approved by: Amadou Palomino M.D. on 10/03/2024 at 21:40
--- NOTE | 2024-10-03 14:31 | DI.CT.S_ITS ---
PROCEDURE: CT LUNG LOW DOSE SCREENING INDICATIONS: hx of tobacco use TECHNIQUE: Noncontrast 2.0-2.5 mm thick sections acquired from the pulmonary apices to the posterior costophrenic angles. 7 mm thick axial MIP, and 5 mm coronal and sagittal reformats were then acquired. For radiation dose reduction, the following was used: automated exposure control, adjustment of mA and/or kV according to patient size. COMPARISON: [facility], CT, CT LUNG LOW DOSE SCREENING, 09/11/2023, 11:28. FINDINGS: Image quality: Diagnostic. Lower Neck: No enlarged lymph nodes. Thyroid: No thyroid nodules which require sonographic follow up, per consensus guidelines. Axillae: No enlarged lymph nodes. Chest Wall: Unremarkable. Bones: Unremarkable. Lungs and Pleura: No pneumothorax or pleural effusions. No consolidation or suspicious nodules. Left upper lobe pulmonary nodule measuring 0.3 cm, (3/117), unchanged. Right upper lobe calcified granuloma. Heart: Heart size is normal. Moderate coronary artery calcifications. No pericardial effusion. Thoracic Vessels: The aorta and pulmonary arteries demonstrate normal size. Mediastinum and Deirdre: No enlarged lymph nodes. Esophagus: No wall thickening. No hiatal hernia. Upper Abdomen: Visualized upper abdomen solid organs and bowel loops appear normal. IMPRESSION: No suspicious pulmonary nodules. LUNG-RADS 2; continued annual screening, if eligible. Clinically Significant Non-pulmonary Findings: Moderate to severe coronary artery calcifications. Dictated by: Marino Flores M.D. on 10/03/2024 at 20:59 Approved by: Marino Flores M.D. on 10/03/2024 at 21:02
== END ==
PROVIDERS: PCP Family Medicine; Referring Provider Family Medicine; Visit Provider Family Medicine
DX: R91.1 Solitary pulmonary nodule (principal); Z87.891 Personal history of nicotine dependence; Z12.2 Encounter for screening for malignant neoplasm of respiratory organs; I25.10 Atherosclerotic heart disease of native coronary artery without angina pectoris; N95.9 Unspecified menopausal and perimenopausal disorder
CPT/HCPCS: 71271; 77080

== ENCOUNTER → 2024-10-05 08:40 | Outpatient (CLI) | payer MEDICARE, OTHER, SELFPAY ==
[2024-10-05 09:57] LABS: Alanine Aminotransferase 18 IU/L (<35); Albumin 4.3 g/dL (3.5-5.0); Albumin Globulin Ratio 1.8 (1.0-2.8); Alkaline Phosphatase 45 U/L (38-126); Aspartate Aminotransferase 21 IU/L (14-36); BUN Creatinine Ratio 21.1 (6-22); Bilirubin Total 0.5 mg/dL (0.2-1.3); Blood Urea Nitrogen 19 mg/dL (7-17); Calcium 9.6 mg/dL (8.4-10.2); Carbon Dioxide 26 mmol/L (22-32); Chloride 104 mmol/L (98-107); Estimated Glomerular Filt Rate > 60 mL/min (>60); Globulin 2.4 g/dL (1.7-4.1); Glucose 111 mg/dL (80-110); HEMOLYSIS < 15 (0-50); Potassium 4.5 mmol/L (3.4-5.1); Sodium 137 mmol/L (137-145); Total Protein 6.7 g/dL (6.3-8.2)
[2024-10-05 10:25] LABS: Free T3, Triiodothyronine Free 3.53 pg/mL (2.77-5.27); Free T4, Direct Thyroxine 1.44 ng/dL (0.78-2.19)
[2024-10-05 10:38] LABS: Thyroid Stimulating Hormone 2.64 uIU/mL (0.47-4.68)
== END ==
PROVIDERS: PCP Family Medicine; Referring Provider Family Medicine; Visit Provider Family Medicine
DX: I10 Essential (primary) hypertension (principal); E78.2 Mixed hyperlipidemia; E03.9 Hypothyroidism, unspecified
CPT/HCPCS: 36415; 80053; 84439; 84443; 84481

== ENCOUNTER → 2024-10-13 16:29 | Outpatient (CLI) | payer MEDICARE, OTHER, SELFPAY ==
--- NOTE | 2024-10-13 16:30 | DI.MG.S_ITS ---
MM screening mammo BI: 10/13/2024. BI-RADS: 1 CLINICAL: 68-year old female for bilateral screening mammogram. Tyrer-Cuzick lifetime risk of 9.7%. Current reported family history of breast cancer: paternal grandmother, paternal aunt and father. PRIOR EXAMS 05/09/2022, 12/28/2020. MAMMOGRAPHY TECHNIQUE: 2D and 3D (tomosynthesis) digital mammographic views obtained, with additional images as needed for full coverage. Current study was also evaluated with a Computer Aided Detection (CAD) system. DENSITY B. There are scattered areas of fibroglandular density. MAMMOGRAPHY FINDINGS Bilateral: No suspicious mass, asymmetry, microcalcification, or other abnormality seen. IMPRESSION: * No evidence of malignancy. RECOMMENDATIONS Bilateral * Annual screening mammography. OVERALL ASSESSMENT CATEGORY BI-RADS-1: Negative. [employer] recommends annual screening mammography beginning at age 40 for women with average risk of breast cancer. ELECTRONICALLY SIGNED: Torrey Strong M.D. on 10/14/2024 at 08:05:12 AM PT Interpreting Station ID: [id number]
== END ==
LOC: MAMMO 16:30
PROVIDERS: PCP Family Medicine; Referring Provider Family Medicine; Visit Provider Family Medicine
DX: Z12.31 Encounter for screening mammogram for malignant neoplasm of breast (principal); Z80.3 Family history of malignant neoplasm of breast
CPT/HCPCS: 77063; 77067

== ENCOUNTER → 2024-11-18 11:00 | Outpatient (CLI) | payer MEDICARE, OTHER, SELFPAY ==
[2024-11-18 12:16] LABS: Hematocrit 37.4 % (36-46); Hemoglobin 12.5 g/dL (12.0-16.0); Mean Corpuscular HGB Conc 33.4 % (30-36); Mean Corpuscular Hemoglobin 29.7 PG (26-34); Mean Corpuscular Volume 88.8 fL (80-100); Platelet Count 284 X10^3/uL (150-400); Red Blood Cell Count 4.21 X10^6/uL (4.0-5.2)
[2024-11-18 12:30] LABS: BUN Creatinine Ratio 18.7 (6-22); Blood Urea Nitrogen 17 mg/dL (7-17); Calcium 9.5 mg/dL (8.4-10.2); Carbon Dioxide 27 mmol/L (22-32); Chloride 104 mmol/L (98-107); Estimated Glomerular Filt Rate > 60 mL/min (>60); Glucose 99 mg/dL (80-110); HEMOLYSIS < 15 (0-50); Potassium 4.6 mmol/L (3.4-5.1); Sodium 138 mmol/L (137-145)
== END ==
PROVIDERS: PCP Family Medicine; Referring Provider Student in an Organized Health Care Education/Training Program; Visit Provider Student in an Organized Health Care Education/Training Program
DX: Z01.818 Encounter for other preprocedural examination (principal)
CPT/HCPCS: 36415; 80048; 85027

== ENCOUNTER → 2025-01-31 21:26 | Outpatient (ROUT) | payer MEDICARE, OTHER, SELFPAY ==
[2025-01-31 21:35] LABS: Appearance Urine UA SL CLOUDY; Bilirubin Urine UA NEGATIVE (NEGATIVE); Color Urine UA YELLOW; Glucose Urine UA NEGATIVE (Negative); Ketones Urine UA NEGATIVE (NEGATIVE); Leukocyte Esterase Urine UA 3+ (NEGATIVE); Nitrite Urine UA NEGATIVE (Negative); Occult Blood Urine UA 2+ (Negative); Protein Urine UA NEGATIVE (Negative); Specific Gravity Urine UA <=1.005 (1.000-1.035); Urobilinogen Urine UA 0.2 E.U./dL (0.2)
[2025-01-31 21:37] LABS: pH Urine UA 6.5 (4.5-8.0)
[2025-01-31 21:41] LABS: Bacteria Urine Many (>30); Culture Indicated Urine Specimen Cultured; RBC Urine 1-5/HPF (0-5/HPF); Squamous Epithelial Cell Urine 0-1 /HPF (0-5/HPF); Urine Volume 10mL (spun); WBC Urine 30-100/HPF (0-5/HPF)
== END ==
PROVIDERS: PCP Family Medicine; Visit Provider Physician Assistant
DX: R31.9 Hematuria, unspecified (principal)
CPT/HCPCS: 81001; 87086

== ENCOUNTER → 2025-02-13 08:46 | Outpatient (CLI) | payer MEDICARE, OTHER, SELFPAY ==
[2025-02-13 11:26] LABS: TSH w/ Reflex to FT4 0.90 uIU/mL (0.47-4.68)
== END ==
PROVIDERS: PCP Family Medicine; Referring Provider Family Medicine; Visit Provider Family Medicine
DX: E03.9 Hypothyroidism, unspecified (principal)
CPT/HCPCS: 36415; 84443

== ENCOUNTER → 2025-02-15 09:13 | Outpatient (CLI) | payer MEDICARE, OTHER, SELFPAY ==
[2025-02-15 10:49] LABS: Appearance Urine UA CLOUDY; Bilirubin Urine UA NEGATIVE (NEGATIVE); Color Urine UA YELLOW; Glucose Urine UA NEGATIVE (Negative); Ketones Urine UA NEGATIVE (NEGATIVE); Leukocyte Esterase Urine UA 3+ (NEGATIVE); Nitrite Urine UA NEGATIVE (Negative); Occult Blood Urine UA 3+ (Negative); Protein Urine UA TRACE (Negative); Specific Gravity Urine UA 1.020 (1.000-1.035); Urobilinogen Urine UA 1.0 E.U./dL (0.2)
[2025-02-15 10:52] LABS: pH Urine UA 5.5 (4.5-8.0)
[2025-02-15 11:06] LABS: Culture Indicated Urine Specimen Cultured
== END ==
PROVIDERS: PCP Family Medicine; Referring Provider Family Medicine; Visit Provider Family Medicine
DX: N39.0 Urinary tract infection, site not specified (principal)
CPT/HCPCS: 81001; 87077; 87086; 87186

== ENCOUNTER → 2025-06-28 09:46 | Outpatient (CLI) | payer MEDICARE, OTHER, SELFPAY ==
[2025-06-28 10:40] LABS: Appearance Urine UA SL CLOUDY; Bilirubin Urine UA NEGATIVE (NEGATIVE); Color Urine UA YELLOW; Glucose Urine UA NEGATIVE (Negative); Ketones Urine UA NEGATIVE (NEGATIVE); Leukocyte Esterase Urine UA 2+ (NEGATIVE); Nitrite Urine UA NEGATIVE (Negative); Occult Blood Urine UA 3+ (Negative); Protein Urine UA 1+ (Negative); Specific Gravity Urine UA 1.015 (1.000-1.035); Urobilinogen Urine UA 0.2 E.U./dL (0.2)
[2025-06-28 10:43] LABS: pH Urine UA 6.0 (4.5-8.0)
[2025-06-28 10:44] LABS: Culture Indicated Urine Specimen Cultured
== END ==
PROVIDERS: PCP Family Medicine; Referring Provider Family Medicine; Visit Provider Family Medicine
DX: N39.0 Urinary tract infection, site not specified (principal)
CPT/HCPCS: 81001; 87077; 87086